=== PATIENT | male | born 1955 | race Caucasian/White ===

== ENCOUNTER 2017-01-26 23:29 | Emergency (ER) | payer BC, OTHER ==
[~2017-01-26] VITALS: Ht 167.6 cm; Wt 81.8 kg
[2017-01-27] MEDS ORDERED: KETOROLAC 60 MG/2 ML VIAL (J1885) IM ONE (01:00)
[2017-01-27] MEDS ORDERED: CYCL10TA PO (02:04)
[2017-01-27] MEDS ORDERED: NAPR500T PO (02:04)
[2017-01-27 02:10] VITALS: BP 130/84
--- NOTE | 2017-01-27 11:11 | REP ---
Clinical: Trauma. Technique: Frontal view of the chest with multiple views of the right hemithorax. Findings: Frontal view of the chest demonstrates no acute cardiopulmonary process. Multiple views of the right hemithorax demonstrates no obvious acute rib fracture or pathology. Impression: Normal right rib series Signed by Jimi Ríos MD 01/27/2017 07:24 A
--- NOTE | 2017-01-27 11:11 | REP ---
Clinical: Trauma. Technique: AP, lateral, bilateral oblique and coned-down views of the lumbosacral spine. Findings: Moderate multilevel degenerative changes through the visualized thoracic and lumbosacral spine include bridging osteophytes as well as mild endplate sclerosis and hypertrophic facet changes. Disc spaces appear relatively well maintained. There is no evidence for acute fracture / compression injury or subluxation. Impression: Moderate multilevel degenerative changes. No acute fracture / compression injury or subluxation. Signed by Jimi Ríos MD 01/27/2017 07:25 A
== END 2017-01-27 02:12 | disposition home or self-care (01) ==
LOC: M ED 23:29
DX: S20.419A Abrasion of unspecified back wall of thorax, initial encounter (principal); S20.229A Contusion of unspecified back wall of thorax, initial encounter; W10.9XXA Fall (on) (from) unspecified stairs and steps, initial encounter; Y92.89 Other specified places as the place of occurrence of the external cause; Y93.01 Activity, walking, marching and hiking; Y99.8 Other external cause status; M25.742 Osteophyte, left hand
CPT/HCPCS: 71101; 72110; 96372; 99282; J1885; J3360

== ENCOUNTER → 2017-06-09 | Outpatient (REF) | payer BC ==
[2017-06-09 13:10] LABS: C REACTIVE PROTEIN QUANTITATIV < 0.30 MG/DL (0.00-0.30)
[2017-06-09 13:10] LABS: RHEUMATOID FACTOR QUANT < 10.0 IU/ML (0-15.0)
[2017-06-09 13:22] LABS: ERYTHROCYTE SEDIMENTATION RATE 1 mm/hr (0-20)
[2017-06-15 14:15] LABS: HLA-B27 Negative (.)
== END ==
LOC: M LABDRAW1 11:43
DX: M51.36 Other intervertebral disc degeneration, lumbar region (principal)
CPT/HCPCS: 86140

== ENCOUNTER → 2017-06-22 | Outpatient (REF) | payer BC ==
[2017-06-22 14:53] LABS: HEMOGLOBIN 17.9 g/dl (14.0-18.0); MEAN CORPUSCULAR HEMOGLOBIN 31.2 pg (27.0-33.0); MEAN CORPUSCULAR HGB CONC 33.8 g/dl (32.0-36.5); MEAN CORPUSCULAR VOLUME 92.3 fl (80.0-96.0); PLATELET COUNT, AUTOMATED 189 10^3/uL (150-450); RED BLOOD COUNT 5.74 10^6/uL (4.30-6.10); RED CELL DISTRIBUTION WIDTH 12.1 % (11.5-14.5); WHITE BLOOD COUNT 6.9 10^3/uL (4.0-10.0)
[2017-06-22 15:12] LABS: SUSPECT SAMPLE POS FLAG
[2017-06-22 16:05] LABS: ALBUMIN 4.5 GM/DL (3.2-5.2); ALBUMIN/GLOBULIN RATIO 1.45 (1.00-1.93); ALKALINE PHOSPHATASE 78 U/L (45-117); ALT/SGPT 95 U/L (12-78); ANION GAP 5 MEQ/L (8-16); AST/SGOT 40 U/L (7-37); BILIRUBIN,TOTAL 0.9 MG/DL (0.2-1.0); BLOOD UREA NITROGEN 18 MG/DL (7-18); CALCIUM LEVEL 9.3 MG/DL (8.8-10.2); CARBON DIOXIDE LEVEL 30 MEQ/L (21-32); CHLORIDE LEVEL 105 MEQ/L (98-107); CHOLESTEROL LEVEL 195 MG/DL (<200); CHOLESTEROL RISK RATIO 5.416 (<5); CREATININE FOR GFR 1.03 MG/DL (0.70-1.30); FREE T4 0.86 NG/DL (0.76-1.46); GLOMERULAR FILTRATION RATE > 60.0 (>49); GLUCOSE, FASTING 110 MG/DL (70-100); HDL CHOLESTEROL 36 MG/DL (>40); LDL CHOLESTEROL 124.8 MG/DL (<100); NON-HDL-C 159 MG/DL; POTASSIUM SERUM 4.4 MEQ/L (3.5-5.1); SODIUM LEVEL 140 MEQ/L (136-145); TOTAL PROTEIN 7.6 GM/DL (6.4-8.2); TRIGLYCERIDES LEVEL 171 MG/DL (<150)
== END ==
LOC: M SFHCADAM 10:59
DX: I49.49 Other premature depolarization (principal); E66.9 Obesity, unspecified; R63.5 Abnormal weight gain; Z91.82 Personal history of military deployment; E78.00 Pure hypercholesterolemia, unspecified

== ENCOUNTER → 2017-06-29 | Outpatient (REF) | payer BC | LOC: M SFHCPLAZ 16:12 | DX: R73.01 Impaired fasting glucose (principal); R74.8 Abnormal levels of other serum enzymes ==

== ENCOUNTER → 2017-06-29 | Outpatient (CLI) | payer BC ==
[2017-06-29 20:29] LABS: FERRITIN 881 NG/ML (26-388)
[2017-06-29 20:30] LABS: ESTIMATED AVERAGE GLUCOSE 126 MG/DL (60-110)
[2017-06-30 10:43] LABS: HEPATITIS B SURFACE ANTIGEN NEGATIVE (NEGATIVE)
[2017-06-30 11:07] LABS: HEPATITIS C VIRUS ABY INDEX < 0.0 INDEX (<0.8)
[2017-06-30 11:08] LABS: HEPATITIS B CORE ANTIBODY IGM NEGATIVE (NEGATIVE)
[2017-06-30 11:09] LABS: HEPATITIS A ANTIBODY IGM NEGATIVE (NEGATIVE)
[2017-07-02 00:06] LABS: ANA (HEP2) Negative (.); ANTI-MITOCHONDRIAL ANTIBODY 2.1 Units (0.0-20.0)
== END ==
LOC: M ADAMS 16:16
DX: R73.01 Impaired fasting glucose (principal); R74.8 Abnormal levels of other serum enzymes

== ENCOUNTER → 2017-07-03 | Outpatient (CLI) | payer BC | LOC: M WHC 09:09 | DX: R74.8 Abnormal levels of other serum enzymes (principal) ==

== ENCOUNTER 2017-10-10 08:37 | Day surgery (SDC) | payer BC ==
[2017-10-10] MEDS ORDERED: LIDOCAINE 2% INJ 100 MG/5 ML SDV (FOR ANES.) As Ordered (09:15)
[2017-10-10] MEDS ORDERED: PROPOFOL 200 MG/20 ML VIAL As Ordered ×2 (09:15→09:16)
[2017-10-10] MEDS: LR 1,000 ML IV (09:32)
== END 2017-10-10 11:40 | disposition home or self-care (01) ==
LOC: M OPP 08:37
DX: Z12.11 Encounter for screening for malignant neoplasm of colon (principal); K57.30 Diverticulosis of large intestine without perforation or abscess without bleeding; E66.9 Obesity, unspecified
CPT/HCPCS: G0121

== ENCOUNTER → 2018-03-27 | Outpatient (REF) | payer BC ==
[2018-03-27 14:00] LABS: ALBUMIN 3.9 GM/DL (3.2-5.2); ALBUMIN/GLOBULIN RATIO 1.22 (1.00-1.93); ALKALINE PHOSPHATASE 71 U/L (45-117); ALT/SGPT 82 U/L (12-78); ANION GAP 7 MEQ/L (8-16); AST/SGOT 38 U/L (7-37); BLOOD UREA NITROGEN 19 MG/DL (7-18); CALCIUM LEVEL 9.3 MG/DL (8.8-10.2); CARBON DIOXIDE LEVEL 28 MEQ/L (21-32); CHLORIDE LEVEL 106 MEQ/L (98-107); CHOLESTEROL LEVEL 193 MG/DL (<200); CHOLESTEROL RISK RATIO 5.361 (<5); CREATININE FOR GFR 0.97 MG/DL (0.70-1.30); GLOMERULAR FILTRATION RATE > 60.0 (>49); GLUCOSE, FASTING 114 MG/DL (70-100); HDL CHOLESTEROL 36 MG/DL (>40); LDL CHOLESTEROL 124 MG/DL (<100); NON-HDL-C 157 MG/DL; SODIUM LEVEL 141 MEQ/L (136-145); TOTAL PROTEIN 7.1 GM/DL (6.4-8.2); TRIGLYCERIDES LEVEL 166 MG/DL (<150)
[2018-03-27 14:14] LABS: ESTIMATED AVERAGE GLUCOSE 123 MG/DL (60-110); HEMOGLOBIN A1c 5.9 %
== END ==
LOC: M SFHCADAM 08:19
DX: R74.8 Abnormal levels of other serum enzymes (principal); E78.00 Pure hypercholesterolemia, unspecified; R73.01 Impaired fasting glucose
CPT/HCPCS: 80053

== ENCOUNTER → 2019-07-30 | Outpatient (REF) | payer BC ==
[~2019-07-30] MED LIST: ALEV220C2 PO; CYCL10TA PO; NAPR-837 PO
[2019-07-30 13:48] LABS: ALT/SGPT 82 U/L (12-78); BLOOD UREA NITROGEN 22 MG/DL (7-18); CALCIUM LEVEL 9.1 MG/DL (8.8-10.2); CARBON DIOXIDE LEVEL 30 MEQ/L (21-32); CHLORIDE LEVEL 107 MEQ/L (98-107); CHOLESTEROL LEVEL 115 MG/DL (<200); CHOLESTEROL RISK RATIO 3.382 (<5); CREATININE FOR GFR 1.03 MG/DL (0.70-1.30); GLOMERULAR FILTRATION RATE > 60.0 (>49); GLUCOSE, FASTING 141 MG/DL (70-100); HDL CHOLESTEROL 34 MG/DL (>40); LDL CHOLESTEROL 54 MG/DL (<100); NON-HDL-C 81 MG/DL; POTASSIUM SERUM 4.8 MEQ/L (3.5-5.1); SODIUM LEVEL 141 MEQ/L (136-145); TOTAL PROTEIN 7.2 GM/DL (6.4-8.2); TRIGLYCERIDES LEVEL 135 MG/DL (<150)
[2019-07-30 15:13] LABS: HEMOGLOBIN A1c 7.1 %
== END ==
LOC: M SFHCADAM 07:48
PROVIDERS: ATTEND Physician Assistant
DX: Z12.5 Encounter for screening for malignant neoplasm of prostate (principal); R73.01 Impaired fasting glucose; E78.5 Hyperlipidemia, unspecified; K76.0 Fatty (change of) liver, not elsewhere classified
CPT/HCPCS: 80053; 80061; 83036; G0103

== ENCOUNTER → 2019-08-12 | Outpatient (REF) | payer BC ==
[2019-08-12 18:13] LABS: APPEARANCE, URINE CLEAR (CLEAR); BACTERIA, URINE AUTO NEGATIVE (NEGATIVE); BILIRUBIN, URINE AUTO NEGATIVE (NEGATIVE); BLOOD, URINE BLOOD NEGATIVE (NEGATIVE); COLOR, URINE YELLOW (YELLOW); GLUCOSE, URINE (UA) AUTO 1+ mg/dL (NEGATIVE); KETONE, URINE AUTO NEGATIVE (NEGATIVE); LEUKOCYTE ESTERASE, URINE AUTO NEGATIVE (NEGATIVE); NITRITE, URINE AUTO NEGATIVE (NEGATIVE); PROTEIN, URINE AUTO NEGATIVE (NEGATIVE); RBC, URINE AUTO 0 /HPF (0-3); SPECIFIC GRAVITY URINE AUTO 1.024 (1.002-1.035); SQUAMOUS EPITHELIAL CELL UR AU 0 /HPF (0-6); UROBILINOGEN, URINE AUTO 0.2 mg/dL (0.0-2.0); WBC, URINE AUTO 1 /HPF (0-3)
== END ==
LOC: M SMT 17:16
PROVIDERS: ATTEND Nurse Practitioner Women's Health
DX: R97.20 Elevated prostate specific antigen [PSA] (principal)

== ENCOUNTER → 2019-08-20 | Outpatient (CLI) | payer BC ==
--- NOTE | 2019-08-20 11:43 | REPPI ---
TRANSRECTAL PROSTATE ULTRASOUND WITH ULTRASOUND GUIDANCE FOR PROSTATE BIOPSY: Transrectal prostate ultrasound are performed. The prostate measures 5.0 x 4.1 x 6.0 cm for a total volume of 65.1 mL. Echotexture is heterogeneous with tiny cystic areas and calcifications. Hypoechoic nodular area in the right apex laterally measures 6 mm in diameter. Seminal vesicles are grossly unremarkable. Ultrasound guidance was provided for Dr. Morris who performed ultrasound guided biopsy of the prostate. Electronically Signed by Alan Flores MD 08/20/2019 11:47 A
== END ==
LOC: M SMT PRO 09:04
PROVIDERS: ATTEND Urology
DX: R97.20 Elevated prostate specific antigen [PSA] (principal)
CPT/HCPCS: 76872; 76942; G0416

== ENCOUNTER → 2019-10-29 | Outpatient (REF) | payer BC ==
[~2019-10-29] MED LIST changes: +CYCL-707 PO; -CYCL10TA PO
[2019-10-29 19:36] LABS: ALBUMIN 4.3 GM/DL (3.2-5.2); ALT/SGPT 82 U/L (12-78); BILIRUBIN,TOTAL 0.9 MG/DL (0.2-1.0); BLOOD UREA NITROGEN 17 MG/DL (7-18); CALCIUM LEVEL 9.6 MG/DL (8.8-10.2); CARBON DIOXIDE LEVEL 29 MEQ/L (21-32); CHLORIDE LEVEL 105 MEQ/L (98-107); CREATININE FOR GFR 0.94 MG/DL (0.70-1.30); GLOMERULAR FILTRATION RATE > 60.0 (>49); GLUCOSE, FASTING 81 MG/DL (70-100); POTASSIUM SERUM 4.1 MEQ/L (3.5-5.1); SODIUM LEVEL 139 MEQ/L (136-145); TOTAL PROTEIN 7.5 GM/DL (6.4-8.2)
== END ==
LOC: M SFHCADAM 15:55
PROVIDERS: ATTEND Physician Assistant
DX: E11.9 Type 2 diabetes mellitus without complications (principal)

== ENCOUNTER → 2020-04-15 | Outpatient (REF) | payer BC ==
[2020-04-15 13:35] LABS: ALT/SGPT 94 U/L (12-78); BILIRUBIN,TOTAL 0.7 MG/DL (0.2-1.0); BLOOD UREA NITROGEN 18 MG/DL (7-18); CALCIUM LEVEL 9.5 MG/DL (8.8-10.2); CARBON DIOXIDE LEVEL 30 MEQ/L (21-32); CHLORIDE LEVEL 105 MEQ/L (98-107); CHOLESTEROL LEVEL 112 MG/DL (<200); CREATININE FOR GFR 1.02 MG/DL (0.70-1.30); GLOMERULAR FILTRATION RATE > 60.0 (>49); GLUCOSE, FASTING 136 MG/DL (70-100); HDL CHOLESTEROL 40 MG/DL (>40); LDL CHOLESTEROL 48 MG/DL (<100); NON-HDL-C 72 MG/DL; POTASSIUM SERUM 4.7 MEQ/L (3.5-5.1); SODIUM LEVEL 141 MEQ/L (136-145); TOTAL PROTEIN 7.2 GM/DL (6.4-8.2); TRIGLYCERIDES LEVEL 120 MG/DL (<150)
[2020-04-15 13:52] LABS: HEMOGLOBIN A1c 6.6 %
[2020-04-18 20:07] LABS: PSA % FREE 18.3 % (.); PSA FREE 1.08 ng/mL; PSA TOTAL 5.9 ng/mL (0.0-4.0)
== END ==
LOC: M SFHCADAM 08:01
PROVIDERS: ATTEND Physician Assistant
DX: E78.00 Pure hypercholesterolemia, unspecified (principal); E11.9 Type 2 diabetes mellitus without complications; R97.20 Elevated prostate specific antigen [PSA]

== ENCOUNTER 2020-06-18 15:05 | Outpatient (CLI) | payer BC ==
[~2020-06-18] VITALS: Ht 167.6 cm; Wt 83.4 kg
[~2020-06-18 15:05] MED LIST changes: +ALBUTEROL 90 MCG/ACT 8GM HFA INHALER INH PRN; +ALBUTEROL SULFATE 2.5 MG/0.5 ML INH NEB SOLN INH PRN; +BAMLANIVIMAB 700 MG in NS 250 ML IV ONE; +EPINEPHrine INJ 1 MG/ML 1ML AMP IM PRN; +NS 1,000 ML IV SCH; +diphenhydrAMINE 50MG/ML VIAL (J1200) IV PRN; +methylPREDNISolone 125MG 2ML VIAL IV PRN
[2020-06-18 15:18] VITALS: BP 144/95
[2020-06-18] MEDS ORDERED: diphenhydrAMINE 50MG CAP PO ONE (16:00)
[2020-06-18] MEDS ORDERED: ACETAMINOPHEN TAB 650MG DOSE (2X325MG) PO ONE (16:00)
[2020-06-18] MEDS ORDERED: methylPREDNISolone 40MG 1ML VIAL IV ONE (16:00)
[2020-06-18] MEDS ORDERED: BAMLANIVIMAB 700 MG in NS 250 ML IV ONE (16:30)
[2020-06-18 16:40] VITALS: BP 134/79
[2020-06-18 16:50] VITALS: BP 128/84
[2020-06-18 17:19] VITALS: BP 131/75
[2020-06-18 17:53] VITALS: BP 139/81
[2020-06-18 18:56] VITALS: BP 121/73
== END 2020-06-18 18:59 | disposition home or self-care (01) ==
LOC: M OPCLI4 15:05 → M 4MAIN 15:13 → M OPCLI4 18:59
PROVIDERS: ATTEND Family Medicine
DX: U07.1 COVID-19 (principal)
CPT/HCPCS: 96375; J2920; M0239

== ENCOUNTER → 2020-08-14 | Outpatient (REF) | payer BC ==
[~2020-08-14] MED LIST changes: -ALBUTEROL 90 MCG/ACT 8GM HFA INHALER INH PRN; -ALBUTEROL SULFATE 2.5 MG/0.5 ML INH NEB SOLN INH PRN; -BAMLANIVIMAB 700 MG in NS 250 ML IV ONE; -EPINEPHrine INJ 1 MG/ML 1ML AMP IM PRN; -NS 1,000 ML IV SCH; -diphenhydrAMINE 50MG/ML VIAL (J1200) IV PRN; -methylPREDNISolone 125MG 2ML VIAL IV PRN
[2020-08-17 23:09] LABS: PSA % FREE 21.7 % (.); PSA FREE 1.15 ng/mL; PSA TOTAL 5.3 ng/mL (0.0-4.0)
== END ==
LOC: M SMT 16:16 → M LABDRWAD 16:16
PROVIDERS: ATTEND Urology
DX: R97.20 Elevated prostate specific antigen [PSA] (principal)

== ENCOUNTER → 2020-09-28 | Outpatient (CLI) | payer BC ==
[~2020-09-28] MED LIST changes: +GASTROGRAFIN SOLUTION 30ML (Q9963) As Ordered ONE; +ISOVUE-370 76% 100ML VIAL As Ordered ONE
--- NOTE | 2020-09-29 06:50 | REP ---
INDICATION: RLQ ABD PAIN. COMPARISON: 09/30/2007 TECHNIQUE: Axial contrast-enhanced images from the lung bases to the pubic symphysis using oral and 100 cc Isovue 370 intravenous contrast material. Coronal and sagittal reformations obtained. This CT examination was performed using the following dose reduction techniques: Automated exposure control, adjustment of mA and/or kv according to the patient's size, and the use of iterative reconstruction technique. FINDINGS: Liver demonstrates diffuse fatty infiltration without focal hepatic lesion. Spleen, pancreas, gallbladder, and bilateral adrenal glands are normal. Kidneys demonstrate symmetric enhancement along with few suspected nonobstructing nephroliths (right greater than left) measuring up to roughly 7 mm in the right kidney and 2 mm in left kidney. The enteric system including stomach, small, and large bowel appears normal. No evidence for obstruction or acute inflammatory process. Normal terminal ileum and appendix are identified in the right lower quadrant. Sigmoid diverticulosis noted without acute diverticulitis. Pelvis demonstrates significantly enlarged heterogeneous prostate gland with mass effect on the base of the bladder. Few small pelvic sidewall lymph nodes measuring up to approximately 8 mm are nonspecific.. Bladder itself is grossly unremarkable. No ascites. No free air. No intraperitoneal or retroperitoneal adenopathy. Abdominal aorta and vasculature appear normal. Musculoskeletal structures are intact and without acute osseous abnormality. IMPRESSION: Nephrolithiasis. Hepatosteatosis. Sigmoid diverticulosis. Heterogeneous enlarged prostate gland. <Electronically signed by Jimi Ríos > 09/29/20 [id number]
== END ==
LOC: M RAD 13:32
PROVIDERS: ATTEND Family Medicine
DX: R10.31 Right lower quadrant pain (principal); K76.0 Fatty (change of) liver, not elsewhere classified; N40.0 Benign prostatic hyperplasia without lower urinary tract symptoms; N20.0 Calculus of kidney
CPT/HCPCS: 74177; Q9963; Q9967

== ENCOUNTER → 2020-11-10 | Outpatient (REF) | payer BC ==
[~2020-11-10] MED LIST changes: -GASTROGRAFIN SOLUTION 30ML (Q9963) As Ordered ONE; -ISOVUE-370 76% 100ML VIAL As Ordered ONE
[2020-11-10 19:51] LABS: HEMOGLOBIN A1c 7.7 %
[2020-11-10 20:10] LABS: ALBUMIN 4.1 GM/DL (3.2-5.2); ALT/SGPT 115 U/L (12-78); BILIRUBIN,TOTAL 0.7 MG/DL (0.2-1.0); BLOOD UREA NITROGEN 21 MG/DL (7-18); CALCIUM LEVEL 9.4 MG/DL (8.8-10.2); CARBON DIOXIDE LEVEL 31 MEQ/L (21-32); CHLORIDE LEVEL 105 MEQ/L (98-107); CREATININE FOR GFR 1.02 MG/DL (0.70-1.30); GLOMERULAR FILTRATION RATE > 60.0 (>49); GLUCOSE, FASTING 201 MG/DL (70-100); POTASSIUM SERUM 4.9 MEQ/L (3.5-5.1); SODIUM LEVEL 141 MEQ/L (136-145); TOTAL PROTEIN 7.3 GM/DL (6.4-8.2)
== END ==
LOC: M SFHCADAM 13:34
PROVIDERS: ATTEND Physician Assistant
DX: E78.00 Pure hypercholesterolemia, unspecified (principal); E11.9 Type 2 diabetes mellitus without complications; K76.0 Fatty (change of) liver, not elsewhere classified

== ENCOUNTER 2020-12-02 23:21 | Inpatient (IN) | payer BC ==
[~2020-12-02] VITALS: Ht 167.6 cm; Wt 82.7 kg
[2020-12-02] MEDS ORDERED: METF500T13 PO (23:29)
[2020-12-02] MEDS ORDERED: ROSU10TA6 PO (23:29)
[2020-12-03] MEDS ORDERED: ONDANSETRON 4MG/2ML VIAL IV ONE (00:45)
[2020-12-03] MEDS ORDERED: NS 1,000 ML IV ONE ×2 (00:45→03:15)
[2020-12-03] MEDS ORDERED: ISOVUE-370 76% 100ML VIAL As Ordered ONE (00:51)
[2020-12-03] MEDS: MORPHINE 2 MG/ML 1ML VIAL (J2270) IV PRN ×2 (01:15→04:56)
[2020-12-03 01:24] LABS: BASO # 0.1 10^3/uL (0.0-0.2); BASO % 0.3 % (0.0-1.0); EOS # 0.1 10^3/uL (0.0-0.5); EOS % 0.4 % (0.0-3.0); HEMATOCRIT 48.5 % (42.0-52.0); HEMOGLOBIN 16.6 g/dl (13.5-17.5); LYMPH # 2.2 10^3/uL (1.5-5.0); LYMPH % 11.7 % (24.0-44.0); MEAN CORPUSCULAR HEMOGLOBIN 30.9 pg (27.0-33.0); MEAN CORPUSCULAR HGB CONC 34.2 g/dl (32.0-36.5); MEAN CORPUSCULAR VOLUME 90.3 fl (80.0-96.0); MONO # 1.9 10^3/uL (0.0-0.8); MONO % 10.4 % (2.0-8.0); NEUTROPHILS # 14.2 10^3/uL (1.5-8.5); NEUTROPHILS % 76.7 % (36.0-66.0); PLATELET COUNT, AUTOMATED 112 10^3/uL (150-450); RED BLOOD COUNT 5.37 10^6/uL (4.30-6.10)
[2020-12-03 01:34] LABS: WHITE BLOOD COUNT 18.6 10^3/uL (4.0-10.0)
[2020-12-03 02:01] LABS: ALBUMIN 3.5 GM/DL (3.2-5.2); ALT/SGPT 69 U/L (12-78); BILIRUBIN,DIRECT 0.1 MG/DL (0.0-0.2); BLOOD UREA NITROGEN 19 MG/DL (7-18); CALCIUM LEVEL 8.5 MG/DL (8.8-10.2); CARBON DIOXIDE LEVEL 25 MEQ/L (21-32); CHLORIDE LEVEL 108 MEQ/L (98-107); CK-MB VALUE MASS < 1.0 NG/ML (<3.6); CPK CREATINE PHOSPHOKINASE 149 U/L (39-308); GLOMERULAR FILTRATION RATE > 60.0 (>49); GLUCOSE, FASTING 171 MG/DL (70-100); LIPASE 173 U/L (73-393); MB/CK RELATIVE INDEX 0.67 (< OR =4); POTASSIUM SERUM 4.8 MEQ/L (3.5-5.1); SODIUM LEVEL 138 MEQ/L (136-145); TOTAL PROTEIN 6.8 GM/DL (6.4-8.2); TROPONIN I < 0.02 NG/ML (< 0.10)
[2020-12-03] MEDS ORDERED: PIPERACILLIN/TAZOBACTAM SOD 3.375 GM in D5W MINI-BAG PLUS 50 ML IV ONE (03:15)
[2020-12-03 03:56] LABS: RSV AMPLIFICATION NEGATIVE (NEGATIVE)
--- NOTE | 2020-12-03 05:04 | REPVR ---
PROCEDURE INFORMATION: Exam: CT Abdomen And Pelvis With Contrast Exam date and time: 12/03/2020 12:43 AM Age: 65 years old Clinical indication: Abdominal pain; Localized; Right lower quadrant (rlq); Patient HX: HX diverticulitis; Additional info: Rlq pain TECHNIQUE: Imaging protocol: Computed tomography of the abdomen and pelvis with contrast. Radiation optimization: All CT scans at this facility use at least one of these dose optimization techniques: automated exposure control; mA and/or kV adjustment per patient size (includes targeted exams where dose is matched to clinical indication); or iterative reconstruction. Contrast material: ISO; Contrast volume: 100 ml; Contrast route: INTRAVENOUS (IV); COMPARISON: CT ABD/PEL W/IV ORAL CONTRAS 09/28/2020 3:28 PM FINDINGS: Liver: The liver is low attenuation indicating hepatic steatosis. Gallbladder and bile ducts: Normal. No calcified stones. No ductal dilation. Pancreas: Normal. No ductal dilation. Spleen: Normal. No splenomegaly. Adrenal glands: Normal. No mass. Kidneys and ureters: Nonobstructing calyceal stones in the right kidney. No hydronephrosis. Stomach and bowel: There is redundant sigmoid colon extending into the right lower quadrant. Wall thickening and diverticular inflammation in the sigmoid colon in the right lower quadrant. Small bowel is unremarkable. Appendix: No evidence of appendicitis. Intraperitoneal space: Mesenteric edema in the right lower quadrant. No abscess or pneumoperitoneum. Vasculature: Unremarkable. No abdominal aortic aneurysm. Lymph nodes: Unremarkable. No enlarged lymph nodes. Urinary bladder: Unremarkable as visualized. Reproductive: Prostate gland is mildly enlarged no bowel obstruction. Bones/joints: Unremarkable. No acute fracture. Soft tissues: Unremarkable. IMPRESSION: 1. Sigmoid diverticulitis with redundant sigmoid colon extending into the right lower quadrant. No bowel perforation or obstruction. 2. Hepatic steatosis. 3. Nonobstructing calyceal stones in the right kidney. Electronically signed by: Nile Lester On 12/03/2020 05:03:26 AM
--- NOTE | 2020-12-03 05:34 | ECGEPIP ---
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
[2020-12-03] MEDS ORDERED: ONDANSETRON 4MG/2ML VIAL IV PRN (05:40)
[2020-12-03] MEDS ORDERED: MORPHINE 2 MG/ML 1ML VIAL (J2270) IV PRN (05:40)
[2020-12-03] MEDS ORDERED: GLUCAGON INJ 1MG VIAL SC PRN (05:40)
[2020-12-03] MEDS ORDERED: DEXTROSE 50% 50 ML SYRINGE IV PRN (05:40)
[2020-12-03] MEDS ORDERED: GLUCOSE 4GM CHEW TABLET PO PRN (05:40)
--- NOTE | 2020-12-03 05:53 | HPEPDOC ---
[facility] Medical History & Physical Date of Admission Dec 03, 2020 Date of Service: Dec 03, 2020 Primary Care Physician: KANCHAN LAU PA-C Attending Physician: GRADY VALENZUELA MD History and Physical CHIEF COMPLAINT: Abdominal pain HISTORY OF PRESENT ILLNESS: Mr. Salguero is a 65-year-old male who presented to the ER with complaints of right lower quadrant pain since yesterday morning. He has a history of divertic ulitis and has had several acute episodes. The most recent one was 4 months ago and was treated with by mouth antibiotics. Yesterday morning he started experiencing some pain in the right lower quadrant which he described as crampy. The pain continued to worsen throughout the day and he complained of subjective fevers. He also had some nausea and vomiting. He experienced diarrhea the night before last and has not had a bowel movement since. The pain got so bad that he finally presented to the ER last evening. He was given a dose of Zosyn while waiting for the results of the CT scan with the suspected appendicitis. However, CT scan showed a redundant sigmoid colon with sigmoid diverticulitis extending into the right lower quadrant. CT was also remarkable for hepatic steatosis and nonobstructing calyceal stones in the right kidney. Patient was noted to have a white count of 18.6. The rest of his labs were relatively unremarkable. He was afebrile with pulse of 80 and blood pressure of 129/63. PAST MEDICAL HISTORY: 1. Diverticulitis. 2. Diabetes type 2, [id number]. 3. Hyperlipidemia. 4. Osteoarthritis. 5. Bone spurs in his back. 6. Benign prostatic hypertrophy PAST SURGICAL HISTORY: No previous surgical history SOCIAL HISTORY: Tobacco use: Negative ETOH: Occasional Illicit drug use: Denies Patient lives with: His and son FAMILY HISTORY: Patient's mother of an unknown cancer at a young age. His father in a traumatic construction accident. REVIEW OF SYSTEMS: Complete 10 point review systems is negative except as noted above PHYSICAL EXAMINATION: Patient is seen in the ER, lying on the stretcher. He is alert and oriented x 3. HEENT is WNL. Neck is supple. Lungs are clear to auscultation. Heart regular rate and rhythm without murmur. Abdomen is soft, tender to percussion and palpation in the right lower quadrant with bowel sounds positive. Extremities with good ROM and strength equal bilaterally. No lower extremity edema. Pedal pulses are positive. Skin is warm and dry with no obvious rash or lesion. Neuro: grossly intact. Psych: He is pleasant and cooperative ASSESSMENT AND PLAN: 1. Acute diverticulitis. We'll continue the patient on Cipro and Flagyl. He will remain nothing by mouth and we will continue him on gentle IV fluids. Monitor for improvement in pain and normalization of white blood cell count at which time his diet can be advanced. 2. Diabetes type 2, tzy-qzgyipb-wozxfbzit. Will hold her metformin while hospitalized. Monitor blood glucose every 6 hours and add sliding scale for use as needed. 3. Leukocytosis. Plan as outlined above. Recheck labs in the morning. 4. DVT prophylaxis. Will add Lovenox. CODE STATUS: CODE STATUS was discussed with the patient desires to be considered full code. He states his would act as a surrogate if you were unable to make his own decisions. Patient is considered high risk of further deterioration including possible development of sepsis or septic shock. He is admitted as inpatient and expected to remain at least 2-3 midnights. Vital Signs Vital Signs Date Time Temp Pulse Resp B/P (MAP) Pulse Ox O2 Delivery O2 Flow Rate FiO2 12/03/20 05:06 16 12/03/20 04:56 115/56 12/03/20 04:33 77 95 12/03/20 00:30 98.7 Room Air Laboratory Data Labs 24H Laboratory Tests 2 12/03/20 00:56: Immature Granulocyte % (Auto) 0.5, Neutrophils (%) (Auto) 76.7H, Lymphocytes (%) (Auto) 11.7L, Monocytes (%) (Auto) 10.4H, Eosinophils (%) (Auto) 0.4, Basophils (%) (Auto) 0.3, Neutrophils # (Auto) 14.2H, Lymphocytes # (Auto) 2.2, Monocytes # (Auto) 1.9H, Eosinophils # (Auto) 0.1, Basophils # (Auto) 0.1, Nucleated Red Blood Cells % (auto) 0.0, Urine Color YELLOW, Urine Appearance CLEAR, Urine pH 5.0, Urine Specific [place] 1.017, Urine Protein NEGATIVE, Urine Glucose (UA) NEGATIVE, Urine Ketones TRACEH, Urine Blood 1+H, Urine Nitrite NEGATIVE, Urine Bilirubin NEGATIVE, Urine Urobilinogen 0.2, Urine Leukocyte Esterase NEGATIVE, Urine WBC (Auto) 1, Urine RBC (Auto) 5H, Urine Hyaline Casts (Auto) 0, Urine Bacteria (Auto) NEGATIVE, Urine Squamous Epithelial Cells 0, Urine Mucus (Auto) SMALL, Urine Sperm (Auto) , Anion Gap 5L, Glomerular Filtration Rate > 60.0, Lactic Acid Level 1.1, Calcium Level 8.5L, Total Bilirubin 1.0, Direct Bilirubin 0.1, Aspartate Amino Transf (AST/SGOT) 43H, Alanine Aminotransferase (ALT/SGPT) 69, Alkaline Phosphatase 59, Total Creatine Kinase 149, Creatine Kinase MB < 1.0, Creatine Kinase MB Relative Index 0.67, Troponin I < 0.02, Total Protein 6.8, Albumin 3.5, Albumin/Globulin Ratio 1.1, Lipase 173 12/03/20 03:12: Coronavirus (COVID-19)(PCR) NEGATIVE, Influenza Type A (RT-PCR) NEGATIVE, Influenza Type B (RT-PCR) NEGATIVE, Respiratory Syncytial Virus (PCR) NEGATIVE CBC/BMP Laboratory Tests 12/03/20 00:56 Home Medications Scheduled Metformin HCl (Metformin HCl) 500 Mg Tablet, 500 MG PO BID Rosuvastatin Calcium (Rosuvastatin Calcium) 10 Mg Tablet, 10 MG PO QPM Scheduled PRN (Aleve) 220 Mg Cap, 220 MG PO for BACK PAIN Allergies Coded Allergies: No Known Drug Allergies (Verified Allergy, Unknown, 06/18/20) A-FIB/CHADSVASC A-FIB History Current/History of A-Fib/PAF?: No TALYA EPSTEIN Dec 03, 2020 05:53
[2020-12-03] MEDS: HumaLOG INSULIN (NovoLOG) PER UNIT SC SCH ×3 (06:00→18:43)
[2020-12-03] MEDS: NS 1,000 ML IV SCH ×2 (06:02→18:42)
[2020-12-03] MEDS ORDERED: PREVAGEN PO (06:25)
[2020-12-03] MEDS ORDERED: ALEV220T22 PO (06:25)
[2020-12-03] MEDS ORDERED: ROSU10TA6 PO (06:25)
[2020-12-03] MEDS ORDERED: VITMTA PO (06:25)
[2020-12-03] MEDS ORDERED: METF-839 PO (06:25)
[2020-12-03] MEDS: metroNIDAZOLE 500 MG in IV 1 EA IV SCH ×2 (07:54→16:27)
[2020-12-03 08:05] VITALS: BP 141/68
[2020-12-03] MEDS ORDERED: CIPROFLOXACIN 400 MG in IV 1 EA IV SCH (09:00)
[2020-12-03] MEDS: cefTRIAXone SOD 1 GM in D5W MINI-BAG PLUS 50 ML IV SCH (09:27)
[2020-12-03] MEDS: ENOXAPARIN 40MG/0.4ML SYRINGE (J1650 PER 10MG) SC SCH (09:28)
[2020-12-03 14:00] VITALS: BP 112/67
[2020-12-03 19:42] VITALS: BP 114/65
[2020-12-04] MEDS: metroNIDAZOLE 500 MG in IV 1 EA IV SCH ×2 (00:31→08:22)
[2020-12-04 05:44] VITALS: BP 116/66
[2020-12-04] MEDS: HumaLOG INSULIN (NovoLOG) PER UNIT SC SCH ×3 (06:00→12:19)
[2020-12-04 06:33] LABS: HEMATOCRIT 43.7 % (42.0-52.0); HEMOGLOBIN 14.5 g/dl (13.5-17.5); MEAN CORPUSCULAR HEMOGLOBIN 30.9 pg (27.0-33.0); MEAN CORPUSCULAR HGB CONC 33.2 g/dl (32.0-36.5); MEAN CORPUSCULAR VOLUME 93.2 fl (80.0-96.0); PLATELET COUNT, AUTOMATED 137 10^3/uL (150-450); RED BLOOD COUNT 4.69 10^6/uL (4.30-6.10); WHITE BLOOD COUNT 9.2 10^3/uL (4.0-10.0)
[2020-12-04 06:59] LABS: BLOOD UREA NITROGEN 13 MG/DL (7-18); CALCIUM LEVEL 8.1 MG/DL (8.8-10.2); CARBON DIOXIDE LEVEL 25 MEQ/L (21-32); CHLORIDE LEVEL 111 MEQ/L (98-107); CREATININE FOR GFR 0.96 MG/DL (0.70-1.30); GLOMERULAR FILTRATION RATE > 60.0 (>49); GLUCOSE, FASTING 89 MG/DL (70-100); POTASSIUM SERUM 4.1 MEQ/L (3.5-5.1); SODIUM LEVEL 144 MEQ/L (136-145)
[2020-12-04] MEDS: ENOXAPARIN 40MG/0.4ML SYRINGE (J1650 PER 10MG) SC SCH (08:23)
[2020-12-04] MEDS: cefTRIAXone SOD 1 GM in D5W MINI-BAG PLUS 50 ML IV SCH (10:11)
[2020-12-04] MEDS ORDERED: CEFD1CAP8 PO (10:21)
[2020-12-04] MEDS ORDERED: TRAM50TA2 PO (10:21)
[2020-12-04] MEDS ORDERED: FLAG500T PO (10:21)
--- NOTE | 2020-12-04 10:33 | DS.PDOC ---
Discharge Summary General Date of Admission 12/03/20 Date of Discharge 12/04/20 Discharge Summary PROCEDURES PERFORMED DURING STAY: [None]. DISCHARGE DIAGNOSES: Acute Diverticulitis Fatty liver Renal stone Secondary diagnosis Diabetes type 2, ecy-rtctkfs-xhxiqlaae. Hyperlipidemia. Osteoarthritis. Bone spurs in his back. Benign prostatic hypertrophy COMPLICATIONS/CHIEF COMPLAINT: Severe Abdomen Pain. HOSPITAL COURSE: Mr. Salguero is a 65-year-old male who presented to the ER with complaints of right lower quadrant pain since yesterday morning. He has a history of diverticulitis and has had several acute episodes. The most recent one was 4 months ago and was treated with by mouth antibiotics. In the morning prior to admission he started experiencing some pain in the right lower quadrant which he described as crampy. The pain continued to worsen throughout the day and he complained of subjective fevers. He also had some nausea and vomiting. He experienced diarrhea the night before admission and has not had a bowel movement since. The pain got so bad that he finally presented to the ER. He was given a dose of Zosyn while waiting for the results of the CT scan with the suspicion for acute appendicitis. However, CT scan showed a redundant sigmoid colon with sigmoid diverticulitis extending into the right lower quadrant. CT was also remarkable for hepatic steatosis and nonobstructing calyceal stones in the right kidney. Patient was noted to have a white count of 18.6. The rest of his labs were relatively unremarkable. He was afebrile with pulse of 80 and blood pressure of 129/63. He was admitted for acute diverticulitis. In the hospital he was treated with ceftriaxone and metronidazole. At present his pain is controlled. He has tolerated liquid diet without any worsening of pain. He is being discharged home with 10 days of cefdinir and metronidazole. DISCHARGE MEDICATIONS: Please see below. ALLERGIES: Please see below. PHYSICAL EXAMINATION ON DISCHARGE: VITAL SIGNS: Please see below. GENERAL: Awake alert oriented x3 seen walking in the corridor is in no acute distress HEENT: Normocephalic atraumatic moist mucous membranes anicteric eyes NECK: Supple no JVD CARDIOVASCULAR EXAMINATION: S1-S2 normal, regular heart sounds, no rub murmur or gallop RESPIRATORY EXAMINATION: Bilateral clear to auscultation vesicular breath sounds ABDOMINAL EXAMINATION: Soft mildly tender on deep palpation in the right iliac fossa, normal bowel sounds, no guarding, no rigidity or rebound EXTREMITIES: No edema LABORATORY DATA: Please see below. ACTIVITY: [As tolerated]. DIET: Liquid diet for 2 days, then low residue diet for a week, then regular diet DISCHARGE PLAN: Home DISCHARGE INSTRUCTIONS: Follow-up with PMD in 1 week May need referral to surgery for this recurrent bouts of diverticulitis DISCHARGE CONDITION: [Stable]. TIME SPENT ON DISCHARGE: 35 minutes. Vital Signs/I&Os Vital Signs Date Time Temp Pulse Resp B/P (MAP) Pulse Ox O2 Delivery O2 Flow Rate FiO2 12/04/20 05:44 97.5 71 20 116/66 (83) 97 Room Air I&O- Last 24 Hours up to 6 AM 12/04/20 06:00 Intake Total 3200 ml Output Total 850 ml Balance 2350 ml Laboratory Data Labs 24H Laboratory Tests 2 12/03/20 13:49: Bedside Glucose (Misc Panel) 145H 12/03/20 16:36: Bedside Glucose (Misc Panel) 113 12/03/20 19:45: Bedside Glucose (Misc Panel) 107 12/04/20 00:18: Bedside Glucose (Misc Panel) 103 12/04/20 05:41: Nucleated Red Blood Cells % (auto) 0.0, Anion Gap 8, Glomerular Filtration Rate > 60.0, Calcium Level 8.1L, Magnesium Level 2.0 12/04/20 05:47: Bedside Glucose (Misc Panel) 98 CBC/BMP Laboratory Tests 12/04/20 05:41 FSBS Laboratory Tests Test 12/03/20 13:49 12/03/20 16:36 12/03/20 19:45 12/04/20 00:18 Range/Units Bedside Glucose (Misc Panel) 145 113 107 103 80-115 MG/DL Test 12/04/20 05:47 Range/Units Bedside Glucose (Misc Panel) 98 80-115 MG/DL Discharge Medications Scheduled Cefdinir (Cefdinir) 300 Mg Capsule, 300 MG PO BID Metformin HCl (Metformin HCl) 500 Mg Tablet, 500 MG PO BID, (Reported) Metronidazole (Flagyl) 500 Mg Tablet, 500 MG PO Q8H FOR 10 DAYS Multivitamins (Thera M Plus Tablet) 1 Each Tablet, 1 TAB PO QPM, (Reported) TAKES AT DINNERTIME Rosuvastatin Calcium (Rosuvastatin Calcium) 10 Mg Tablet, 10 MG PO QHS, (Reported) [Prevagen] , 1 CAP PO QPM, (Reported) TAKES AT DINNERTIME Scheduled PRN Naproxen Sodium (Aleve) 220 Mg Tablet, 440 MG PO BID PRN for PAIN LEVEL 1-5, (Reported) Tramadol HCl (Tramadol HCl) 50 Mg Tablet, 1 TAB PO TIDP PRN for PAIN LEVEL 6-10 Allergies Coded Allergies: No Known Drug Allergies (Verified Allergy, Unknown, 06/18/20) JOHNNIE HAMPTON MD Dec 04, 2020 10:24
== END 2020-12-04 13:28 | disposition home or self-care (01) | DRG 244 ==
LOC: M ED 23:21 → M ED INP 23:22 → ENRESERV 12-03 06:45 → M MS5PR 12-03 08:05
PROVIDERS: ADMIT Internal Medicine; ATTEND Internal Medicine Nephrology
DX: K57.92 Diverticulitis of intestine, part unspecified, without perforation or abscess without bleeding (principal); K76.0 Fatty (change of) liver, not elsewhere classified; E11.9 Type 2 diabetes mellitus without complications; M19.90 Unspecified osteoarthritis, unspecified site; E78.5 Hyperlipidemia, unspecified; N20.0 Calculus of kidney; N40.0 Benign prostatic hyperplasia without lower urinary tract symptoms; Z79.899 Other long term (current) drug therapy

== ENCOUNTER 2021-01-03 23:06 | Emergency (ER) | payer BC ==
[~2021-01-03] VITALS: Ht 167.6 cm; Wt 82.5 kg
[~2021-01-03 23:06] MED LIST changes: +ALEV220T22 PO; +CEFD1CAP8 PO; +FLAG500T PO; +METF-839 PO; +METF500T13 PO; +PREVAGEN PO; +ROSU10TA6 PO; +TRAM50TA2 PO; +VITMTA PO
[2021-01-04 03:18] VITALS: BP 176/92
--- NOTE | 2021-01-04 05:57 | ECGEPIP ---
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
[2021-01-04 06:03] LABS: BASO # 0.1 10^3/uL (0.0-0.2); BASO % 0.5 % (0.0-1.0); EOS % 0.1 % (0.0-3.0); HEMATOCRIT 49.2 % (42.0-52.0); HEMOGLOBIN 16.3 g/dl (13.5-17.5); LYMPH # 1.5 10^3/uL (1.5-5.0); LYMPH % 12.2 % (24.0-44.0); MEAN CORPUSCULAR HEMOGLOBIN 30.5 pg (27.0-33.0); MEAN CORPUSCULAR HGB CONC 33.1 g/dl (32.0-36.5); MEAN CORPUSCULAR VOLUME 92.1 fl (80.0-96.0); MONO # 0.9 10^3/uL (0.0-0.8); NEUTROPHILS # 9.9 10^3/uL (1.5-8.5); NEUTROPHILS % 79.8 % (36.0-66.0); PLATELET COUNT, AUTOMATED 179 10^3/uL (150-450); RED BLOOD COUNT 5.34 10^6/uL (4.30-6.10); WHITE BLOOD COUNT 12.4 10^3/uL (4.0-10.0)
[2021-01-04] MEDS ORDERED: ONDANSETRON 4MG/2ML VIAL IV ONE (06:20)
[2021-01-04] MEDS ORDERED: KETOROLAC 30 MG/ML 1ML VIAL IV ONE (06:20)
[2021-01-04] MEDS ORDERED: NS 1,000 ML IV ONE (06:20)
[2021-01-04 06:30] LABS: ALBUMIN 4.2 GM/DL (3.2-5.2); ALT/SGPT 103 U/L (12-78); BILIRUBIN,DIRECT 0.3 MG/DL (0.0-0.2); BILIRUBIN,TOTAL 0.9 MG/DL (0.2-1.0); BLOOD UREA NITROGEN 24 MG/DL (7-18); CALCIUM LEVEL 9.5 MG/DL (8.8-10.2); CARBON DIOXIDE LEVEL 27 MEQ/L (21-32); CHLORIDE LEVEL 107 MEQ/L (98-107); CPK CREATINE PHOSPHOKINASE 162 U/L (39-308); CREATININE FOR GFR 1.09 MG/DL (0.70-1.30); GLOMERULAR FILTRATION RATE > 60.0 (>49); GLUCOSE, FASTING 200 MG/DL (70-100); LIPASE 184 U/L (73-393); MB/CK RELATIVE INDEX 1.85 (< OR =4); POTASSIUM SERUM 4.4 MEQ/L (3.5-5.1); SODIUM LEVEL 140 MEQ/L (136-145); TOTAL PROTEIN 7.7 GM/DL (6.4-8.2); TROPONIN I 0.02 NG/ML (< 0.10)
[2021-01-04] MEDS ORDERED: ISOVUE-370 76% 100ML VIAL As Ordered ONE (06:42)
--- NOTE | 2021-01-04 08:01 | REPVR ---
PROCEDURE INFORMATION: Exam: CT Abdomen And Pelvis With Contrast Exam date and time: 01/04/2021 6:16 AM Age: 65 years old Clinical indication: Abdominal pain; Additional info: Lower abd pain HX diverticulitis TECHNIQUE: Imaging protocol: Computed tomography of the abdomen and pelvis with contrast. Radiation optimization: All CT scans at this facility use at least one of these dose optimization techniques: automated exposure control; mA and/or kV adjustment per patient size (includes targeted exams where dose is matched to clinical indication); or iterative reconstruction. Contrast material: ISOVUE 370; Contrast volume: 100 ml; Contrast route: INTRAVENOUS (IV); COMPARISON: CT ABD/PEL W/IV CONTRAST ONLY 12/03/2020 2:16 AM FINDINGS: Lungs: Interstitial prominence and mild dependent airspace disease. Liver: Diffuse fatty infiltration of the liver. Gallbladder and bile ducts: Unremarkable gallbladder. No biliary ductal dilatation. Pancreas: Stable 6 mm nodular hypodensity of fat attenuation in the pancreatic head. Spleen: No splenomegaly. Adrenal glands: Unremarkable adrenals. Kidneys and ureters: Multiple nonobstructing right renal calculi, the largest measuring 7 mm. Stomach and bowel: Wall thickening in the nondistended stomach and colon. Acute right-sided diverticulitis, involving the redundant sigmoid colon. Appendix: Focal enlargement of the distal appendix measuring 10 mm in maximum diameter, which was also present on the previous study. Intraperitoneal space: Infiltration of mesenteric fat and small quantity of fluid in the right lower quadrant. Vasculature: Normal caliber of the abdominal aorta. Lymph nodes: Subcentimeter lymph nodes. Urinary bladder: Minimal bladder wall thickening. Reproductive: Markedly enlarged prostate producing extrinsic compression of the bladder base with loss of normal fascial planes. Inhomogeneous prostate attenuation along with punctate calcifications. Bones/joints: Degenerative change and disc bulging. Soft tissues: Calcification at the gluteal muscle attachment sites. IMPRESSION: 1. Multiple nonobstructing right renal calculi, the largest measuring 7 mm. 2. Markedly enlarged prostate producing extrinsic compression of the bladder base with loss of normal fascial planes. 3. Wall thickening in the nondistended stomach and colon. 4. Acute right-sided diverticulitis, involving the redundant sigmoid colon. 5. Focal enlargement of the distal appendix measuring 10 mm in maximum diameter, which was also present on the previous study. 6. Additional findings as described above. Electronically signed by: Renny Ghosh On 01/04/2021 08:00:43 AM
[2021-01-04] MEDS ORDERED: PIPERACILLIN/TAZOBACTAM SOD 3.375 GM in D5W MINI-BAG PLUS 50 ML IV ONE (08:35)
[2021-01-04] MEDS ORDERED: FLAG500T PO (08:52)
[2021-01-04] MEDS ORDERED: CIPR-249 PO (08:52)
== END 2021-01-04 10:37 | disposition home or self-care (01) ==
LOC: M ED 23:06
DX: K57.32 Diverticulitis of large intestine without perforation or abscess without bleeding (principal); E11.9 Type 2 diabetes mellitus without complications; N40.0 Benign prostatic hyperplasia without lower urinary tract symptoms; N20.0 Calculus of kidney
CPT/HCPCS: 36415; 74177; 80048; 80076; 82550; 82553; 83605; 83690; 84484; 85025; 93005; 93041; 96361; 96365; 96375; 99284; J1885; J2405; J2543; Q9967

== ENCOUNTER → 2021-02-08 | Outpatient (CLI) | payer BC ==
[~2021-02-08] MED LIST changes: +CIPR-249 PO; +CVS1CAP2 PO
== END ==
LOC: M LABSMTC 10:25
PROVIDERS: ATTEND Anesthesiology
DX: Z01.812 Encounter for preprocedural laboratory examination (principal); Z20.822 Contact with and (suspected) exposure to COVID-19

== ENCOUNTER 2021-02-11 07:28 | Day surgery (SDC) | payer BC ==
[~2021-02-11] VITALS: Ht 167.6 cm; Wt 80.3 kg
[~2021-02-11 07:28] MED LIST changes: +LIDOCAINE 2% 100MG/5ML SDV (FOR ANES.) As Ordered ONE; +NS 1,000 ML IV ONE; +propofoL 200 MG/20 ML VIAL As Ordered ONE
--- NOTE | 2021-02-11 09:21 | ROOR ---
Patient Name: Darrell Salguero Procedure Date: 02/11/2021 8:47 AM Date of : 1955 Age: 66 Room: [facility] Gender: Male Note Status: Finalized Procedure: Colonoscopy Indications: Follow-up of diverticulitis Providers: Monroe Horner MD Referring MD: LARISA Li Requesting Provider: Medicines: Monitored Anesthesia Care Complications: No immediate complications. Procedure: Pre-Anesthesia Assessment: - Prior to the procedure, a History and Physical was performed, and patient medications and allergies were reviewed. The patient is competent. The risks and benefits of the procedure and the sedation options and risks were discussed with the patient. All questions were answered and informed consent was obtained. Patient identification and proposed procedure were verified by the physician, the nurse and the laborer golf course in the procedure room. Mental Status Examination: alert and oriented. Airway Examination: normal oropharyngeal airway and neck mobility. Prophylactic Antibiotics: The patient does not require prophylactic antibiotics. Prior Anticoagulants: The patient has taken no previous anticoagulant or antiplatelet agents. ASA Grade Assessment: II - A patient with mild systemic disease. After reviewing the risks and benefits, the patient was deemed in satisfactory condition to undergo the procedure. The anesthesia plan was to use monitored anesthesia care (MAC). Immediately prior to administration of medications, the patient was re-assessed for adequacy to receive sedatives. The heart rate, respiratory rate, oxygen saturations, blood pressure, adequacy of pulmonary ventilation, and response to care were monitored throughout the procedure. The physical status of the patient was re-assessed after the procedure. The Colonoscope was introduced through the anus and advanced to the cecum, identified by appendiceal orifice and ileocecal valve. The colonoscopy was performed without difficulty. The patient tolerated the procedure well. The quality of the bowel preparation was excellent. Findings: The perianal and digital rectal examinations were normal. Multiple medium-mouthed diverticula were found in the sigmoid colon. Impression: - Diverticulosis in the sigmoid colon. - No specimens collected. Recommendation: - Discharge patient to home. - Resume previous diet. - Continue present medications. - Return to endoscopist as previously scheduled. Procedure Code(s): --- Professional --- 99691, Colonoscopy, flexible; diagnostic, including collection of specimen(s) by brushing or washing, when performed (separate procedure) Diagnosis Code(s): --- Professional --- K57.32, Diverticulitis of large intestine without perforation or abscess without bleeding K57.30, Diverticulosis of large intestine without perforation or abscess without bleeding CPT copyright 2019 [employer]. All rights reserved. The codes documented in this report are preliminary and upon medical record coder review may be revised to meet current compliance requirements. Monroe Horner MD Monroe Horner MD 02/11/2021 9:21:10 AM Electronically signed by Monroe Horner MD Number of Addenda: 0 Note Initiated On: 02/11/2021 8:47 AM Estimated Blood Loss: Estimated blood loss: none.
[2021-02-11 09:35] VITALS: BP 146/79
== END 2021-02-11 08:48 | disposition home or self-care (01) ==
LOC: M OPP 07:28
PROVIDERS: ATTEND Surgery
DX: K57.30 Diverticulosis of large intestine without perforation or abscess without bleeding (principal); K57.32 Diverticulitis of large intestine without perforation or abscess without bleeding; E11.9 Type 2 diabetes mellitus without complications; Z79.84 Long term (current) use of oral hypoglycemic drugs; Z79.899 Other long term (current) drug therapy

== ENCOUNTER → 2021-04-01 | Outpatient (REF) | payer BC ==
[~2021-04-01] MED LIST changes: -LIDOCAINE 2% 100MG/5ML SDV (FOR ANES.) As Ordered ONE; -NS 1,000 ML IV ONE; -propofoL 200 MG/20 ML VIAL As Ordered ONE
[2021-04-01 13:03] LABS: BASO % 0.5 % (0.0-1.0); EOS # 0.2 10^3/uL (0.0-0.5); EOS % 2.7 % (0.0-3.0); HEMATOCRIT 50.8 % (42.0-52.0); HEMOGLOBIN 16.4 g/dl (13.5-17.5); LYMPH # 2.1 10^3/uL (1.5-5.0); LYMPH % 24.6 % (24.0-44.0); MEAN CORPUSCULAR HEMOGLOBIN 30.6 pg (27.0-33.0); MEAN CORPUSCULAR HGB CONC 32.3 g/dl (32.0-36.5); MEAN CORPUSCULAR VOLUME 94.8 fl (80.0-96.0); PLATELET COUNT, AUTOMATED 172 10^3/uL (150-450); RED BLOOD COUNT 5.36 10^6/uL (4.30-6.10); WHITE BLOOD COUNT 8.4 10^3/uL (4.0-10.0)
[2021-04-01 14:27] LABS: ALBUMIN 3.8 GM/DL (3.2-5.2); ALT/SGPT 84 U/L (12-78); BILIRUBIN,TOTAL 1.2 MG/DL (0.2-1.0); BLOOD UREA NITROGEN 19 MG/DL (7-18); CALCIUM LEVEL 9.5 MG/DL (8.8-10.2); CARBON DIOXIDE LEVEL 31 MEQ/L (21-32); CHLORIDE LEVEL 105 MEQ/L (98-107); CHOLESTEROL LEVEL 106 MG/DL (<200); CHOLESTEROL RISK RATIO 3.028 (<5); CREATININE FOR GFR 1.08 MG/DL (0.70-1.30); FOLATE 17.4 NG/ML; FREE T4 0.94 NG/DL (0.76-1.46); GLOMERULAR FILTRATION RATE > 60.0 (>49); GLUCOSE, FASTING 165 MG/DL (70-100); HDL CHOLESTEROL 35 MG/DL (>40); LDL CHOLESTEROL 41 MG/DL (<100); MALB URINE SIEMENS 30.8 MG/L; MAU/CREAT RATIO 19.1 MCG/MG (0.0-30.0); NON-HDL-C 71 MG/DL; SODIUM LEVEL 141 MEQ/L (136-145); TOTAL PROTEIN 7.1 GM/DL (6.4-8.2); TRIGLYCERIDES LEVEL 149 MG/DL (<150); VITAMIN B12 LEVEL 602 PG/ML
[2021-04-03 00:07] LABS: PSA FREE 1.23 ng/mL; PSA TOTAL 5.6 ng/mL (0.0-4.0)
== END ==
LOC: M SFHCADAM 07:59
PROVIDERS: ATTEND Physician Assistant
DX: E11.9 Type 2 diabetes mellitus without complications (principal); E78.5 Hyperlipidemia, unspecified; R97.20 Elevated prostate specific antigen [PSA]; Z12.5 Encounter for screening for malignant neoplasm of prostate
CPT/HCPCS: 80053; 80061; 82043; 82607; 82746; 84154; 84439; 84443; 85025; G0103

== ENCOUNTER → 2021-04-13 | Outpatient (REF) | payer BC ==
[2021-04-13 20:08] LABS: HEMOGLOBIN A1c 7.1 %
== END ==
LOC: M SFHCADAM 15:14
PROVIDERS: ATTEND Physician Assistant
DX: E11.9 Type 2 diabetes mellitus without complications (principal)

== ENCOUNTER → 2022-04-22 | Outpatient (REF) | payer BC ==
[~2022-04-22] MED LIST changes: -CEFD1CAP8 PO; +CEFD300C41 PO
[2022-04-22 13:41] LABS: HEMATOCRIT 48.8 % (42.0-52.0); HEMOGLOBIN 16.2 g/dl (13.5-17.5); MEAN CORPUSCULAR HEMOGLOBIN 30.9 pg (27.0-33.0); MEAN CORPUSCULAR HGB CONC 33.2 g/dl (32.0-36.5); PLATELET COUNT, AUTOMATED 175 10^3/uL (150-450); RED BLOOD COUNT 5.25 10^6/uL (4.30-6.10); WHITE BLOOD COUNT 6.8 10^3/uL (4.0-10.0)
[2022-04-22 14:08] LABS: ALBUMIN 4.2 G/DL (3.2-5.2); ALKALINE PHOSPHATASE 71 U/L (46-116); ALT/SGPT 87 U/L (7.0-40); AST/SGOT 38 U/L (<34); BLOOD UREA NITROGEN 19 MG/DL (9-23); CALCIUM LEVEL 9.8 MG/DL (8.3-10.6); CARBON DIOXIDE LEVEL 30 MMOL/L (20-31); CHLORIDE LEVEL 101 MMOL/L (98-107); CHOLESTEROL LEVEL 87 MG/DL (<200); CHOLESTEROL RISK RATIO 2.55 (<5); CREATININE FOR GFR 0.94 MG/DL (0.70-1.30); GLOMERULAR FILTRATION RATE > 60.0 (>49); GLUCOSE, FASTING 312 MG/DL (74-106); HDL CHOLESTEROL 34.1 MG/DL (>40); LDL CHOLESTEROL 30.1 MG/DL (<100); NON-HDL-C 53 MG/DL; POTASSIUM SERUM 5.3 MMOL/L (3.5-5.1); SODIUM LEVEL 138 MMOL/L (136-145); THYROID STIMULATING HORMONE 1.704 uIU/ML (0.55-4.78); TRIGLYCERIDES LEVEL 114 MG/DL (<150)
[2022-04-22 14:10] LABS: FREE T4 1.18 NG/DL (0.89-1.76); VITAMIN B12 LEVEL 530 PG/ML (211-911)
[2022-04-22 14:20] LABS: FOLATE 20.8 NG/ML (>5.4)
[2022-04-22 14:49] LABS: CREATININE, URINE 162.1 MG/DL
[2022-04-22 14:50] LABS: MAU/CREAT RATIO 28.9 MCG/MG (0.0-30.0)
[2022-04-22 15:08] LABS: HEMOGLOBIN A1c 10.2 % (4.0-6.0)
== END ==
LOC: M SFHCADAM 07:26
PROVIDERS: ATTEND Physician Assistant
DX: E78.00 Pure hypercholesterolemia, unspecified (principal); E11.9 Type 2 diabetes mellitus without complications; K76.0 Fatty (change of) liver, not elsewhere classified

== ENCOUNTER → 2022-09-16 | Outpatient (CLI) | payer BC ==
[2022-09-19 23:10] LABS: PSA % FREE 24.1 % (.); PSA FREE 1.83 ng/mL; PSA TOTAL 7.6 ng/mL (0.0-4.0)
== END ==
LOC: M WUC 13:31
PROVIDERS: ATTEND Urology
DX: R97.20 Elevated prostate specific antigen [PSA] (principal)

== ENCOUNTER → 2022-09-21 | Outpatient (REF) | payer BC ==
[2022-09-21 16:53] LABS: ALBUMIN 4.2 G/DL (3.2-5.2); ALKALINE PHOSPHATASE 44 U/L (46-116); ALT/SGPT 65 U/L (7.0-40); AST/SGOT 32 U/L (<34); BLOOD UREA NITROGEN 24 MG/DL (9-23); CALCIUM LEVEL 9.8 MG/DL (8.3-10.6); CARBON DIOXIDE LEVEL 28 MMOL/L (20-31); CHLORIDE LEVEL 106 MMOL/L (98-107); CREATININE FOR GFR 0.94 MG/DL (0.70-1.30); GLOMERULAR FILTRATION RATE > 60.0 (>49); GLUCOSE, FASTING 98 MG/DL (74-106); POTASSIUM SERUM 4.7 MMOL/L (3.5-5.1); SODIUM LEVEL 142 MMOL/L (136-145); TOTAL PROTEIN 6.7 G/DL (5.7-8.2)
[2022-09-21 17:36] LABS: HEMOGLOBIN A1c 6.6 % (4.0-6.0)
== END ==
LOC: M SFHCADAM 14:51
PROVIDERS: ATTEND Physician Assistant
DX: E11.9 Type 2 diabetes mellitus without complications (principal); I10 Essential (primary) hypertension

== ENCOUNTER → 2022-12-27 | Outpatient (REF) | payer BC ==
[2022-12-27 13:38] LABS: BLOOD UREA NITROGEN 26 MG/DL (9-23); CALCIUM LEVEL 9.3 MG/DL (8.3-10.6); CARBON DIOXIDE LEVEL 29 MMOL/L (20-31); CHLORIDE LEVEL 105 MMOL/L (98-107); CREATININE FOR GFR 0.94 MG/DL (0.70-1.30); GLOMERULAR FILTRATION RATE > 60.0 (>49); GLUCOSE, FASTING 93 MG/DL (74-106); POTASSIUM SERUM 4.6 MMOL/L (3.5-5.1); SODIUM LEVEL 140 MMOL/L (136-145)
[2022-12-27 14:06] LABS: HEMOGLOBIN A1c 5.7 % (4.0-6.0)
== END ==
LOC: M SFHCADAM 07:29
PROVIDERS: ATTEND Physician Assistant
DX: E11.9 Type 2 diabetes mellitus without complications (principal)

== ENCOUNTER 2023-01-09 05:40 | Emergency (ER) | payer BC, MEDICARE ==
[~2023-01-09] VITALS: Ht 167.6 cm; Wt 76.5 kg
[2023-01-09] MEDS ORDERED: NS 1,000 ML IV ONE (06:05)
[2023-01-09] MEDS ORDERED: ONDANSETRON 4MG 2ML VIAL IV ONE (06:15)
[2023-01-09 06:21] LABS: BASO # 0.1 10^3/uL (0.0-0.2); BASO % 0.6 % (0.0-1.0); EOS # 0.3 10^3/uL (0.0-0.5); EOS % 3.6 % (0.0-3.0); HEMATOCRIT 49.8 % (42.0-52.0); HEMOGLOBIN 16.5 g/dl (13.5-17.5); LYMPH # 2.6 10^3/uL (1.5-5.0); LYMPH % 32.9 % (24.0-44.0); MEAN CORPUSCULAR HEMOGLOBIN 30.8 pg (27.0-33.0); MEAN CORPUSCULAR HGB CONC 33.1 g/dl (32.0-36.5); MEAN CORPUSCULAR VOLUME 92.9 fl (80.0-96.0); MONO # 0.9 10^3/uL (0.0-0.8); MONO % 11.8 % (2.0-8.0); NEUTROPHILS # 3.9 10^3/uL (1.5-8.5); NEUTROPHILS % 50.7 % (36.0-66.0); PLATELET COUNT, AUTOMATED 195 10^3/uL (150-450); RED BLOOD COUNT 5.36 10^6/uL (4.30-6.10); WHITE BLOOD COUNT 7.8 10^3/uL (4.0-10.0)
[2023-01-09 06:47] LABS: LIPASE 94 U/L (12-53)
[2023-01-09 06:49] LABS: ALBUMIN 4.2 G/DL (3.2-5.2); ALKALINE PHOSPHATASE 61 U/L (46-116); ALT/SGPT 74 U/L (7.0-40); AST/SGOT 44 U/L (<34); BILIRUBIN,DIRECT 0.4 MG/DL (<0.4); BILIRUBIN,TOTAL 1.2 MG/DL (0.3-1.2); BLOOD UREA NITROGEN 28 MG/DL (9-23); CALCIUM LEVEL 9.8 MG/DL (8.3-10.6); CARBON DIOXIDE LEVEL 25 MMOL/L (20-31); CHLORIDE LEVEL 105 MMOL/L (98-107); CREATININE FOR GFR 1.08 MG/DL (0.70-1.30); GLOMERULAR FILTRATION RATE > 60.0 (>49); GLUCOSE, FASTING 130 MG/DL (74-106); POTASSIUM SERUM 4.1 MMOL/L (3.5-5.1); SODIUM LEVEL 140 MMOL/L (136-145); TOTAL PROTEIN 7.2 G/DL (5.7-8.2)
[2023-01-09] MEDS ORDERED: KETOROLAC 30 MG/ML 1ML VIAL IV ONE (06:55)
[2023-01-09] MEDS ORDERED: ISOVUE-370 76% 100ML VIAL As Ordered ONE (07:19)
[2023-01-09] MEDS ORDERED: TAMSULOSIN 0.4 MG CAP PO ONE (08:45)
[2023-01-09] MEDS ORDERED: metroNIDAZOLE (FLAGYL) 500MG TABLET PO ONE (08:45)
[2023-01-09] MEDS ORDERED: CIPROFLOXACIN 500MG TABLET PO ONE (08:45)
[2023-01-09] MEDS ORDERED: FLOM0.4C39 PO (08:54)
[2023-01-09] MEDS ORDERED: HYDR-3713 PO (08:54)
[2023-01-09] MEDS ORDERED: CIPR-249 PO (08:54)
[2023-01-09] MEDS ORDERED: KETO10TAB PO (08:54)
[2023-01-09] MEDS ORDERED: METR-265 PO (08:54)
[2023-01-09 09:45] VITALS: BP 127/64; TEMP 97.7; O2SAT 96
== END 2023-01-09 09:59 | disposition home or self-care (01) ==
LOC: M ED 05:40
DX: N13.0 Hydronephrosis with ureteropelvic junction obstruction (principal); K57.30 Diverticulosis of large intestine without perforation or abscess without bleeding; E11.9 Type 2 diabetes mellitus without complications; E78.5 Hyperlipidemia, unspecified; N40.0 Benign prostatic hyperplasia without lower urinary tract symptoms; Z79.2 Long term (current) use of antibiotics; Z79.4 Long term (current) use of insulin; Z79.899 Other long term (current) drug therapy
CPT/HCPCS: 74177; 80048; 80076; 81001; 83605; 83690; 85025; 93041; 96361; 96374; 96375; 99284; J1885; J2405; Q9967

== ENCOUNTER → 2023-01-12 | Outpatient (REF) | payer BC ==
[~2023-01-12] MED LIST changes: +FLOM0.4C39 PO; +HYDR-3713 PO; +KETO10TAB PO; +METR-265 PO
== END ==
LOC: M SMT 13:10
PROVIDERS: ATTEND Urology
DX: Z01.818 Encounter for other preprocedural examination (principal); N20.0 Calculus of kidney; N39.0 Urinary tract infection, site not specified

== ENCOUNTER → 2023-01-19 | Outpatient (CLI) | payer BC ==
[~2023-01-19] MED LIST changes: +BAYE81TA10 PO; +DULA3PEN SC; +FARX1TAB3 PO; +LOSA25TA13 PO; +OCUVTAB4 PO; +ONDA-83 PO; +TAMS1CAP17 PO
== END ==
LOC: M PLAIMG 11:15
PROVIDERS: ATTEND Urology
DX: Z01.818 Encounter for other preprocedural examination (principal); N20.0 Calculus of kidney

== ENCOUNTER 2023-01-20 08:52 | Day surgery (SDC) | payer BC ==
[~2023-01-20] VITALS: Ht 167.6 cm; Wt 74.2 kg
[~2023-01-20 08:52] MED LIST changes: +ceFAZolin SOD 2 GM in IV 1 EA IV ONE
[2023-01-20] MEDS ORDERED: LR 1,000 ML IV SCH ×2 (09:05→12:40)
[2023-01-20] MEDS ORDERED: INSULIN LISPRO (NovoLOG) PER UNIT SC PRN ×2 (09:05→12:40)
[2023-01-20] MEDS ORDERED: LIDOCAINE 2% 100MG/5ML SDV (FOR ANES.) As Ordered ONE (09:45)
[2023-01-20] MEDS ORDERED: MIDAZOLAM INJ 2MG/2ML VIAL As Ordered ONE (09:45)
[2023-01-20] MEDS ORDERED: ONDANSETRON 4MG 2ML VIAL As Ordered ONE (09:45)
[2023-01-20] MEDS ORDERED: propofoL 200 MG/20 ML VIAL As Ordered ONE (09:45)
[2023-01-20] MEDS ORDERED: fentaNYL 100 MCG/2 ML INJECTION As Ordered ONE (09:45)
[2023-01-20] MEDS ORDERED: ISOVUE-300 61% 100ML VIAL As Ordered ONE (09:58)
[2023-01-20] MEDS ORDERED: ACETAMINOPHEN 1000MG 100ML IV BAG As Ordered ONE (10:50)
[2023-01-20] MEDS ORDERED: KETOROLAC 60MG 2ML VIAL As Ordered ONE (11:50)
[2023-01-20] MEDS ORDERED: PHENYLephrine 500MCG 5ML (100MCG/ML) SYRINGE As Ordered ONE (11:56)
[2023-01-20] MEDS ORDERED: oxyCODONE 5MG TAB PO PRN (12:40)
[2023-01-20] MEDS ORDERED: HYDROMORPHONE HCL 0.5 MG/ 0.5 ML SYRINGE IV PRN (12:40)
[2023-01-20] MEDS ORDERED: ONDANSETRON 4MG 2ML VIAL IV PRN (12:40)
[2023-01-20] MEDS ORDERED: fentaNYL 100 MCG/2 ML INJECTION IV PRN (12:40)
[2023-01-20] MEDS ORDERED: PERCOCET 5MG/325MG TAB PO PRN (13:10)
[2023-01-20 14:36] VITALS: BP 170/84; TEMP 97; O2SAT 96
== END 2023-01-20 14:36 | disposition home or self-care (01) ==
LOC: M SDC 08:52
PROVIDERS: ATTEND Urology
DX: N20.1 Calculus of ureter (principal); N21.0 Calculus in bladder; I10 Essential (primary) hypertension; E78.5 Hyperlipidemia, unspecified; E11.9 Type 2 diabetes mellitus without complications; N40.0 Benign prostatic hyperplasia without lower urinary tract symptoms; K57.92 Diverticulitis of intestine, part unspecified, without perforation or abscess without bleeding; Z79.84 Long term (current) use of oral hypoglycemic drugs; Z79.82 Long term (current) use of aspirin; Z79.899 Other long term (current) drug therapy
CPT/HCPCS: 52341; 52356; 76000; 82365; C1769; C1894; C2617; J0131; J0690; J1100; J1885; J2250; J2371; J2405; J3010; Q9967

== ENCOUNTER → 2023-04-10 | Outpatient (REF) | payer BC ==
[~2023-04-10] MED LIST changes: -CEFD300C41 PO; +CEFD300C42 PO; -ceFAZolin SOD 2 GM in IV 1 EA IV ONE
[2023-04-10 13:41] LABS: HEMOGLOBIN A1c 5.6 % (4.0-6.0)
[2023-04-10 13:49] LABS: BLOOD UREA NITROGEN 23 MG/DL (9-23); CALCIUM LEVEL 9.9 MG/DL (8.3-10.6); CARBON DIOXIDE LEVEL 30 MMOL/L (20-31); CHLORIDE LEVEL 105 MMOL/L (98-107); CREATININE FOR GFR 1.01 MG/DL (0.70-1.30); GLOMERULAR FILTRATION RATE > 60.0 (>49); GLUCOSE, FASTING 182 MG/DL (74-106); POTASSIUM SERUM 4.9 MMOL/L (3.5-5.1); SODIUM LEVEL 142 MMOL/L (136-145)
== END ==
LOC: M SFHCADAM 10:31
PROVIDERS: ATTEND Physician Assistant
DX: E11.9 Type 2 diabetes mellitus without complications (principal); I10 Essential (primary) hypertension

== ENCOUNTER → 2023-08-02 | Outpatient (REF) | payer BC ==
[~2023-08-02] MED LIST changes: +CEFD1CAP9 PO; -CEFD300C42 PO
[2023-08-02 14:09] LABS: HEMATOCRIT 53.9 % (42.0-52.0); HEMOGLOBIN 18.1 g/dl (13.5-17.5); MEAN CORPUSCULAR HGB CONC 33.6 g/dl (32.0-36.5); MEAN CORPUSCULAR VOLUME 92.5 fl (80.0-96.0); PLATELET COUNT, AUTOMATED 182 10^3/uL (150-450); RED BLOOD COUNT 5.83 10^6/uL (4.30-6.10); WHITE BLOOD COUNT 7.1 10^3/uL (4.0-10.0)
[2023-08-02 14:16] LABS: HEMOGLOBIN A1c 6.4 % (4.0-6.0)
[2023-08-02 14:23] LABS: CREATININE, URINE 76.1 MG/DL; MAU/CREAT RATIO 9.1 MCG/MG (0.0-30.0)
[2023-08-02 14:28] LABS: THYROID STIMULATING HORMONE 1.516 uIU/ML (0.55-4.78)
[2023-08-02 14:29] LABS: ALBUMIN 4.3 G/DL (3.2-5.2); ALKALINE PHOSPHATASE 52 U/L (46-116); ALT/SGPT 61 U/L (7.0-40); AST/SGOT 27 U/L (<34); BILIRUBIN,TOTAL 1.2 MG/DL (0.3-1.2); BLOOD UREA NITROGEN 22 MG/DL (9-23); CALCIUM LEVEL 9.2 MG/DL (8.3-10.6); CARBON DIOXIDE LEVEL 30 MMOL/L (20-31); CHLORIDE LEVEL 105 MMOL/L (98-107); CHOLESTEROL LEVEL 101 MG/DL (<200); CHOLESTEROL RISK RATIO 2.99 (<5); CREATININE FOR GFR 0.88 MG/DL (0.70-1.30); FOLATE 22.3 NG/ML (>5.4); FREE T4 0.98 NG/DL (0.89-1.76); GLOMERULAR FILTRATION RATE > 60.0 (>49); GLUCOSE, FASTING 106 MG/DL (74-106); HDL CHOLESTEROL 33.7 MG/DL (>40); LDL CHOLESTEROL 45.3 MG/DL (<100); NON-HDL-C 67.3 MG/DL; POTASSIUM SERUM 5.5 MMOL/L (3.5-5.1); SODIUM LEVEL 141 MMOL/L (136-145); TRIGLYCERIDES LEVEL 110 MG/DL (<150)
[2023-08-02 14:30] LABS: VITAMIN B12 LEVEL 399 PG/ML (211-911)
== END ==
LOC: M SFHCADAM 07:07
PROVIDERS: ATTEND Physician Assistant
DX: E78.00 Pure hypercholesterolemia, unspecified (principal); E08.65 Diabetes mellitus due to underlying condition with hyperglycemia; I10 Essential (primary) hypertension

== ENCOUNTER → 2023-08-21 | Outpatient (REF) | payer BC ==
[2023-08-21 13:51] LABS: ALKALINE PHOSPHATASE 51 U/L (46-116); ALT/SGPT 61 U/L (7.0-40); AST/SGOT 33 U/L (<34); BILIRUBIN,TOTAL 1.1 MG/DL (0.3-1.2); BLOOD UREA NITROGEN 21 MG/DL (9-23); CALCIUM LEVEL 9.4 MG/DL (8.3-10.6); CARBON DIOXIDE LEVEL 30 MMOL/L (20-31); CHLORIDE LEVEL 105 MMOL/L (98-107); CREATININE FOR GFR 0.94 MG/DL (0.70-1.30); GLOMERULAR FILTRATION RATE > 60.0 (>49); GLUCOSE, FASTING 109 MG/DL (74-106); MAGNESIUM LEVEL 1.9 MG/DL (1.8-2.4); POTASSIUM SERUM 4.5 MMOL/L (3.5-5.1); SODIUM LEVEL 143 MMOL/L (136-145); TOTAL PROTEIN 6.5 G/DL (5.7-8.2)
== END ==
LOC: M SFHCADAM 07:09
PROVIDERS: ATTEND Physician Assistant
DX: N20.0 Calculus of kidney (principal); I10 Essential (primary) hypertension; E08.65 Diabetes mellitus due to underlying condition with hyperglycemia; E78.00 Pure hypercholesterolemia, unspecified; I49.9 Cardiac arrhythmia, unspecified

== ENCOUNTER → 2023-09-07 | Outpatient (CLI) | payer BC | LOC: M PLAIMG 13:20 | PROVIDERS: ATTEND Physician Assistant | DX: I49.8 Other specified cardiac arrhythmias (principal) ==

== ENCOUNTER → 2023-09-08 | Outpatient (CLI) | payer BC ==
[2023-09-10 15:06] LABS: PSA % FREE 24.8 % (.); PSA FREE 2.18 ng/mL; PSA TOTAL 8.8 ng/mL (0.0-4.0)
== END ==
LOC: M PLAIMG 07:33
PROVIDERS: ATTEND Urology
DX: R97.20 Elevated prostate specific antigen [PSA] (principal); N20.0 Calculus of kidney

== ENCOUNTER → 2023-11-29 | Outpatient (REF) | payer BC ==
[~2023-11-29] MED LIST changes: -ROSU10TA6 PO; +ROSU10TA61 PO
[2023-11-29 14:42] LABS: BLOOD UREA NITROGEN 29 MG/DL (9-23); CALCIUM LEVEL 9.7 MG/DL (8.3-10.6); CARBON DIOXIDE LEVEL 29 MMOL/L (20-31); CHLORIDE LEVEL 105 MMOL/L (98-107); CREATININE FOR GFR 0.95 MG/DL (0.70-1.30); GLOMERULAR FILTRATION RATE > 60.0 (>49); GLUCOSE, FASTING 97 MG/DL (74-106); MAGNESIUM LEVEL 2.1 MG/DL (1.8-2.4); POTASSIUM SERUM 4.8 MMOL/L (3.5-5.1); SODIUM LEVEL 140 MMOL/L (136-145)
[2023-11-29 14:46] LABS: HEMOGLOBIN A1c 5.9 % (4.0-6.0)
== END ==
LOC: M SFHCADAM 07:04
PROVIDERS: ATTEND Physician Assistant
DX: E11.9 Type 2 diabetes mellitus without complications (principal); I49.8 Other specified cardiac arrhythmias; I10 Essential (primary) hypertension

== ENCOUNTER → 2023-12-01 | Outpatient (REF) | payer BC ==
[2023-12-01 17:48] LABS: APPEARANCE, URINE CLOUDY (CLEAR); BACTERIA, URINE AUTO NEGATIVE (NEGATIVE); BILIRUBIN, URINE AUTO NEGATIVE (NEGATIVE); BLOOD, URINE BLOOD NEGATIVE (NEGATIVE); COLOR, URINE YELLOW (YELLOW); GLUCOSE, URINE (UA) AUTO 3+ mg/dL (NEGATIVE); KETONE, URINE AUTO NEGATIVE (NEGATIVE); LEUKOCYTE ESTERASE, URINE AUTO NEGATIVE (NEGATIVE); MUCUS, URINE SMALL (NEGATIVE); NITRITE, URINE AUTO NEGATIVE (NEGATIVE); PROTEIN, URINE AUTO NEGATIVE (NEGATIVE); RBC, URINE AUTO 0 /HPF (0-3); SPECIFIC GRAVITY URINE AUTO 1.022 (1.002-1.035); SQUAMOUS EPITHELIAL CELL UR AU 0 /HPF (0-6); UROBILINOGEN, URINE AUTO 0.2 mg/dL (0.0-2.0); WBC, URINE AUTO 2 /HPF (0-3)
== END ==
LOC: M SFHCADAM 17:01
PROVIDERS: ATTEND Physician Assistant
DX: R31.9 Hematuria, unspecified (principal)

== ENCOUNTER → 2023-12-29 | Outpatient (CLI) | payer BC ==
[2024-01-01 13:42] LABS: PSA FREE 1.8 ng/mL; PSA TOTAL 5.9 ng/mL (< OR = 4.0)
== END ==
LOC: M PLALAB 07:15
PROVIDERS: ATTEND Urology
DX: R97.20 Elevated prostate specific antigen [PSA] (principal)

== ENCOUNTER → 2024-02-26 | Outpatient (CLI) | payer BC ==
[2024-02-26 11:02] LABS: HEMATOCRIT 50.5 % (42.0-52.0); HEMOGLOBIN 16.6 g/dl (13.5-17.5); MEAN CORPUSCULAR HEMOGLOBIN 30.8 pg (27.0-33.0); MEAN CORPUSCULAR HGB CONC 32.9 g/dl (32.0-36.5); MEAN CORPUSCULAR VOLUME 93.7 fl (80.0-96.0); PLATELET COUNT, AUTOMATED 171 10^3/uL (150-450); RED BLOOD COUNT 5.39 10^6/uL (4.30-6.10); WHITE BLOOD COUNT 8.4 10^3/uL (4.0-10.0)
[2024-02-26 11:26] LABS: BLOOD UREA NITROGEN 21 MG/DL (9-23); CALCIUM LEVEL 9.9 MG/DL (8.3-10.6); CARBON DIOXIDE LEVEL 28 MMOL/L (20-31); CHLORIDE LEVEL 105 MMOL/L (98-107); CREATININE FOR GFR 0.86 MG/DL (0.70-1.30); GLOMERULAR FILTRATION RATE > 60.0 (>49); GLUCOSE, FASTING 121 MG/DL (74-106); POTASSIUM SERUM 4.5 MMOL/L (3.5-5.1); SODIUM LEVEL 143 MMOL/L (136-145)
== END ==
LOC: M PLALAB 06:50
PROVIDERS: ATTEND Urology
DX: Z01.818 Encounter for other preprocedural examination (principal); N21.0 Calculus in bladder; N39.0 Urinary tract infection, site not specified

== ENCOUNTER → 2024-02-26 | Outpatient (CLI) | payer BC | LOC: M LAB 09:02 | PROVIDERS: ATTEND Urology | DX: Z01.818 Encounter for other preprocedural examination (principal); N21.0 Calculus in bladder ==

== ENCOUNTER 2024-04-22 23:01 | Emergency (ER) | payer BC, MEDICARE ==
[~2024-04-22] VITALS: Ht 167.6 cm; Wt 78.2 kg
[2024-04-22 23:48] LABS: BASO # 0.1 10^3/uL (0.0-0.2); BASO % 0.5 % (0.0-1.0); EOS # 0.2 10^3/uL (0.0-0.5); EOS % 1.9 % (0.0-3.0); HEMATOCRIT 48.5 % (42.0-52.0); HEMOGLOBIN 16.2 g/dl (13.5-17.5); LYMPH # 2.5 10^3/uL (1.5-5.0); LYMPH % 22.7 % (24.0-44.0); MEAN CORPUSCULAR HEMOGLOBIN 30.7 pg (27.0-33.0); MEAN CORPUSCULAR HGB CONC 33.4 g/dl (32.0-36.5); MONO % 9.6 % (2.0-8.0); NEUTROPHILS # 7.1 10^3/uL (1.5-8.5); NEUTROPHILS % 65.1 % (36.0-66.0); PLATELET COUNT, AUTOMATED 174 10^3/uL (150-450); RED BLOOD COUNT 5.27 10^6/uL (4.30-6.10); WHITE BLOOD COUNT 10.9 10^3/uL (4.0-10.0)
[2024-04-23 00:11] LABS: LIPASE 57 U/L (12-53)
[2024-04-23 00:13] LABS: ALBUMIN 3.9 G/DL (3.2-5.2); ALKALINE PHOSPHATASE 52 U/L (40-129); ALT/SGPT 57 U/L (7.0-40); AST/SGOT 32 U/L (<34); BILIRUBIN,DIRECT 0.3 MG/DL (<0.4); BLOOD UREA NITROGEN 28 MG/DL (9-23); CALCIUM LEVEL 10.3 MG/DL (8.3-10.6); CARBON DIOXIDE LEVEL 29 MMOL/L (20-31); CHLORIDE LEVEL 103 MMOL/L (98-107); CREATININE FOR GFR 1.22 MG/DL (0.70-1.30); GLOMERULAR FILTRATION RATE > 60.0 (>49); GLUCOSE, FASTING 132 MG/DL (74-106); POTASSIUM SERUM 3.9 MMOL/L (3.5-5.1); SODIUM LEVEL 139 MMOL/L (136-145); TOTAL PROTEIN 6.9 G/DL (5.7-8.2)
[2024-04-23] MEDS: ONDANSETRON 4MG 2ML VIAL IV ONE (00:47)
[2024-04-23] MEDS: KETOROLAC 30 MG/ML 1ML VIAL IV ONE (00:48)
[2024-04-23] MEDS ORDERED: ONDA-282 PO (02:14)
[2024-04-23] MEDS ORDERED: KETO10TAB PO (02:14)
[2024-04-23 02:28] VITALS: BP 105/69; TEMP 97.1; O2SAT 99
[2024-04-23] MEDS: OXYCODONE/APAP 5MG/325MG(HOME DOSE PACK) PO ONE (02:35)
== END 2024-04-23 02:49 | disposition home or self-care (01) ==
LOC: M ED 23:01
DX: N20.1 Calculus of ureter (principal); E78.5 Hyperlipidemia, unspecified; E11.9 Type 2 diabetes mellitus without complications; K57.90 Diverticulosis of intestine, part unspecified, without perforation or abscess without bleeding; Z87.442 Personal history of urinary calculi; Z79.82 Long term (current) use of aspirin; Z79.4 Long term (current) use of insulin; Z79.83 Long term (current) use of bisphosphonates; Z79.899 Other long term (current) drug therapy
CPT/HCPCS: 74176; 80048; 80076; 81001; 83690; 85025; 96374; 96375; 99283; J1885; J2405

== ENCOUNTER → 2024-05-09 | Outpatient (REF) | payer BC ==
[~2024-05-09] MED LIST changes: +FINA5TAB2 PO; +HYDR12.55 PO; +METO1TAB32 PO; +ONDA-282 PO
[2024-05-09 13:26] LABS: BLOOD UREA NITROGEN 25 MG/DL (9-23); CALCIUM LEVEL 9.8 MG/DL (8.3-10.6); CARBON DIOXIDE LEVEL 33 MMOL/L (20-31); CHLORIDE LEVEL 100 MMOL/L (98-107); CREATININE FOR GFR 1.03 MG/DL (0.70-1.30); GLOMERULAR FILTRATION RATE > 60.0 (>49); GLUCOSE, FASTING 153 MG/DL (74-106); POTASSIUM SERUM 4.3 MMOL/L (3.5-5.1); SODIUM LEVEL 143 MMOL/L (136-145)
[2024-05-09 13:33] LABS: BASO # 0.1 10^3/uL (0.0-0.2); BASO % 0.9 % (0.0-1.0); EOS # 0.3 10^3/uL (0.0-0.5); EOS % 3.2 % (0.0-3.0); HEMATOCRIT 51.7 % (42.0-52.0); HEMOGLOBIN 16.7 g/dl (13.5-17.5); LYMPH # 2.2 10^3/uL (1.5-5.0); LYMPH % 26.4 % (24.0-44.0); MEAN CORPUSCULAR HGB CONC 32.3 g/dl (32.0-36.5); MONO # 0.7 10^3/uL (0.0-0.8); MONO % 8.8 % (2.0-8.0); NEUTROPHILS # 4.9 10^3/uL (1.5-8.5); NEUTROPHILS % 60.5 % (36.0-66.0); PLATELET COUNT, AUTOMATED 242 10^3/uL (150-450); RED BLOOD COUNT 5.56 10^6/uL (4.30-6.10); WHITE BLOOD COUNT 8.2 10^3/uL (4.0-10.0)
[2024-05-09 13:39] LABS: APPEARANCE, URINE CLOUDY (CLEAR); BACTERIA, URINE AUTO NEGATIVE (NEGATIVE); BILIRUBIN, URINE AUTO NEGATIVE (NEGATIVE); BLOOD, URINE BLOOD NEGATIVE (NEGATIVE); COLOR, URINE YELLOW (YELLOW); GLUCOSE, URINE (UA) AUTO 3+ mg/dL (NEGATIVE); KETONE, URINE AUTO NEGATIVE (NEGATIVE); LEUKOCYTE ESTERASE, URINE AUTO NEGATIVE (NEGATIVE); MUCUS, URINE SMALL (NEGATIVE); NITRITE, URINE AUTO NEGATIVE (NEGATIVE); PROTEIN, URINE AUTO NEGATIVE (NEGATIVE); RBC, URINE AUTO 1 /HPF (0-3); SPECIFIC GRAVITY URINE AUTO 1.016 (1.002-1.035); SQUAMOUS EPITHELIAL CELL UR AU 0 /HPF (0-6); URIC ACID CRYSTALS SMALL; UROBILINOGEN, URINE AUTO 0.2 mg/dL (0.0-2.0); WBC, URINE AUTO 0 /HPF (0-3)
[2024-05-09 13:52] LABS: HEMOGLOBIN A1c 6.3 % (4.0-6.0)
== END ==
LOC: M SFHCADAM 07:48
PROVIDERS: ATTEND Physician Assistant
DX: Z01.818 Encounter for other preprocedural examination (principal); E11.9 Type 2 diabetes mellitus without complications

== ENCOUNTER 2024-05-17 12:20 | Day surgery (SDC) | payer MEDICARE, BC ==
[~2024-05-17] VITALS: Ht 167.6 cm; Wt 77.0 kg
[2024-05-17] MEDS ORDERED: NS (Normal Saline) 0.9% 1,000 ML IV SCH (12:40)
[2024-05-17] MEDS ORDERED: propofoL 200 MG/20 ML VIAL As Ordered ONE (14:07)
[2024-05-17] MEDS ORDERED: LIDOCAINE 2% 100MG/5ML SDV (FOR ANES.) As Ordered ONE (14:07)
[2024-05-17] MEDS ORDERED: ONDANSETRON 4MG 2ML VIAL As Ordered ONE (14:07)
[2024-05-17] MEDS ORDERED: ACETAMINOPHEN 1000MG/100ML IV BAG As Ordered ONE (14:07)
[2024-05-17] MEDS ORDERED: MIDAZOLAM INJ 2MG/2ML VIAL As Ordered ONE (14:07)
[2024-05-17] MEDS ORDERED: fentaNYL 100 MCG/2 ML INJECTION As Ordered ONE (14:07)
[2024-05-17] MEDS: ceFAZolin SOD 2 GM in IV 1 EA IV ONE (15:05)
[2024-05-17] MEDS ORDERED: dexmedeTOMIDine (4MCG/ML)200MCG/50ML BTL (PRECEDEX) As Ordered ONE (16:05)
[2024-05-17] MEDS ORDERED: ePHEDrine SULFATE 25 MG/5 ML(5MG/ML) SYRINGE As Ordered ONE (16:05)
[2024-05-17] MEDS: ISOVUE-300 61% 100ML VIAL As Ordered ONE (16:40)
[2024-05-17] MEDS ORDERED: ONDANSETRON 4MG 2ML VIAL IV PRN (16:45)
[2024-05-17] MEDS ORDERED: oxyCODONE 5MG TAB PO PRN (16:45)
[2024-05-17] MEDS ORDERED: fentaNYL 100 MCG/2 ML INJECTION IV PRN (16:45)
[2024-05-17] MEDS ORDERED: CIPR-249 PO (17:08)
[2024-05-17 17:55] VITALS: BP 133/78; TEMP 97; O2SAT 97
[2024-06-17] MEDS ORDERED: METO1TAB7 PO (11:31)
== END 2024-05-17 18:32 | disposition home or self-care (01) ==
LOC: M SDC 12:20
PROVIDERS: ATTEND Urology
DX: N21.0 Calculus in bladder (principal); N20.0 Calculus of kidney; I10 Essential (primary) hypertension; E11.9 Type 2 diabetes mellitus without complications; E78.5 Hyperlipidemia, unspecified; N40.0 Benign prostatic hyperplasia without lower urinary tract symptoms; K57.92 Diverticulitis of intestine, part unspecified, without perforation or abscess without bleeding; Z79.84 Long term (current) use of oral hypoglycemic drugs; Z79.899 Other long term (current) drug therapy; Z79.82 Long term (current) use of aspirin
CPT/HCPCS: 52317; 52356; 74420; 82365; C1769; C2617; J0131; J0690; J1100; J2250; J2405; J3010; Q9967

== ENCOUNTER → 2024-06-12 | Outpatient (REF) | payer MEDICARE ==
[2024-06-12 14:10] LABS: HEMATOCRIT 46.9 % (42.0-52.0); HEMOGLOBIN 15.5 g/dl (13.5-17.5); MEAN CORPUSCULAR HEMOGLOBIN 29.9 pg (27.0-33.0); MEAN CORPUSCULAR VOLUME 90.5 fl (80.0-96.0); PLATELET COUNT, AUTOMATED 398 10^3/uL (150-450); RED BLOOD COUNT 5.18 10^6/uL (4.30-6.10); WHITE BLOOD COUNT 9.1 10^3/uL (4.0-10.0)
[2024-06-12 16:21] LABS: BLOOD UREA NITROGEN 25 MG/DL (9-23); CALCIUM LEVEL 9.9 MG/DL (8.3-10.6); CARBON DIOXIDE LEVEL 29 MMOL/L (20-31); CHLORIDE LEVEL 105 MMOL/L (98-107); GLOMERULAR FILTRATION RATE > 60.0 (>49); GLUCOSE, FASTING 119 MG/DL (74-106); POTASSIUM SERUM 4.6 MMOL/L (3.5-5.1); SODIUM LEVEL 143 MMOL/L (136-145)
== END ==
LOC: M LABDRWAD 12:49 → M SMT 12:49
PROVIDERS: ATTEND Urology
DX: Z01.818 Encounter for other preprocedural examination (principal); N21.0 Calculus in bladder; N40.1 Benign prostatic hyperplasia with lower urinary tract symptoms

== ENCOUNTER 2024-06-19 11:00 | Day surgery (SDC) | payer MEDICARE ==
[~2024-06-19] VITALS: Ht 167.6 cm; Wt 72.6 kg
[~2024-06-19 11:00] MED LIST changes: +METO1TAB7 PO
[2024-06-19] MEDS ORDERED: LR 1,000 ML IV SCH ×2 (11:25→15:20)
[2024-06-19] MEDS ORDERED: ACETAMINOPHEN 1000MG/100ML IV BAG As Ordered ONE (11:34)
[2024-06-19] MEDS ORDERED: MIDAZOLAM INJ 2MG/2ML VIAL As Ordered ONE (11:34)
[2024-06-19] MEDS ORDERED: fentaNYL 100 MCG/2 ML INJECTION As Ordered ONE (11:34)
[2024-06-19] MEDS ORDERED: ONDANSETRON 4MG 2ML VIAL As Ordered ONE (11:35)
[2024-06-19] MEDS ORDERED: LIDOCAINE 2% 100MG/5ML SDV (FOR ANES.) As Ordered ONE (11:35)
[2024-06-19] MEDS ORDERED: propofoL 200 MG/20 ML VIAL As Ordered ONE (11:35)
[2024-06-19] MEDS: ceFAZolin SOD 2 GM in IV 1 EA IV ONE (12:52)
[2024-06-19] MEDS ORDERED: ePHEDrine SULFATE 25 MG/5 ML(5MG/ML) SYRINGE As Ordered ONE (13:54)
[2024-06-19] MEDS ORDERED: FUROSEMIDE 100MG/10ML VIAL As Ordered ONE (15:03)
[2024-06-19] MEDS ORDERED: ONDANSETRON 4MG 2ML VIAL IV PRN (15:20)
[2024-06-19] MEDS ORDERED: fentaNYL 100 MCG/2 ML INJECTION IV PRN (15:20)
[2024-06-19] MEDS ORDERED: CIPR-249 PO (15:49)
[2024-06-19] MEDS ORDERED: ACETAMINOPHEN 325 MG TAB PO PRN (15:55)
[2024-06-19 16:20] VITALS: BP 145/78; TEMP 97.3; O2SAT 98
== END 2024-06-19 16:43 | disposition home or self-care (01) ==
LOC: M SDC 11:00
PROVIDERS: ATTEND Urology
DX: N40.1 Benign prostatic hyperplasia with lower urinary tract symptoms (principal); I10 Essential (primary) hypertension; E78.5 Hyperlipidemia, unspecified; E11.9 Type 2 diabetes mellitus without complications; K57.92 Diverticulitis of intestine, part unspecified, without perforation or abscess without bleeding; K76.0 Fatty (change of) liver, not elsewhere classified; Z79.899 Other long term (current) drug therapy; Z79.82 Long term (current) use of aspirin; Z79.84 Long term (current) use of oral hypoglycemic drugs
CPT/HCPCS: 52601; J0131; J0690; J1100; J1940; J2250; J2405; J3010

== ENCOUNTER → 2024-07-02 | Outpatient (REF) | payer MEDICARE ==
[2024-07-02 13:53] LABS: APPEARANCE, URINE CLOUDY (CLEAR); BACTERIA, URINE AUTO NEGATIVE (NEGATIVE); BILIRUBIN, URINE AUTO NEGATIVE (NEGATIVE); BLOOD, URINE BLOOD 3+ (NEGATIVE); COLOR, URINE AMBER (YELLOW); GLUCOSE, URINE (UA) AUTO 3+ mg/dL (NEGATIVE); KETONE, URINE AUTO NEGATIVE (NEGATIVE); LEUKOCYTE ESTERASE, URINE AUTO 2+ (NEGATIVE); NITRITE, URINE AUTO NEGATIVE (NEGATIVE); PROTEIN, URINE AUTO 2+ mg/dL (NEGATIVE); RBC, URINE AUTO TNTC /HPF (0-3); SQUAMOUS EPITHELIAL CELL UR AU 0 /HPF (0-6); UROBILINOGEN, URINE AUTO 0.2 mg/dL (0.0-2.0); WBC, URINE AUTO 143 /HPF (0-3)
== END ==
LOC: M SMT 12:58
PROVIDERS: ATTEND Urology
DX: N39.0 Urinary tract infection, site not specified (principal)

== ENCOUNTER → 2024-08-28 | Outpatient (CLI) | payer MEDICARE | LOC: M SLEEP 20:00 | PROVIDERS: ATTEND Nurse Practitioner Adult Health | DX: G47.33 Obstructive sleep apnea (adult) (pediatric) (principal); R06.83 Snoring ==

== ENCOUNTER → 2024-08-29 | Outpatient (REF) | payer MEDICARE | LOC: M SFHCADAM 08:31 | PROVIDERS: ATTEND Physician Assistant | DX: Z53.9 Procedure and treatment not carried out, unspecified reason (principal) ==

== ENCOUNTER → 2024-08-30 | Outpatient (REF) | payer MEDICARE ==
[2024-08-30 14:11] LABS: FREE T4 1.09 NG/DL (0.89-1.76); THYROID STIMULATING HORMONE 1.932 uIU/ML (0.55-4.78)
[2024-08-30 14:12] LABS: ALBUMIN 3.9 G/DL (3.2-5.2); BILIRUBIN,TOTAL 0.8 MG/DL (0.3-1.2); CALCIUM LEVEL 9.7 MG/DL (8.3-10.6); CHOLESTEROL RISK RATIO 2.82 (<5); CREATININE FOR GFR 1.02 MG/DL (0.70-1.30); GLOMERULAR FILTRATION RATE 80.1 (>49); HDL CHOLESTEROL 39.7 MG/DL (>40); LDL CHOLESTEROL 49.9 MG/DL (<100); NON-HDL-C 72.3 MG/DL; TOTAL PROTEIN 6.8 G/DL (5.7-8.2)
[2024-08-30 14:18] LABS: HEMOGLOBIN A1c 5.9 % (4.0-6.0)
== END ==
LOC: M SFHCADAM 07:28
PROVIDERS: ATTEND Physician Assistant
DX: E78.00 Pure hypercholesterolemia, unspecified (principal); E11.9 Type 2 diabetes mellitus without complications; K76.0 Fatty (change of) liver, not elsewhere classified; I10 Essential (primary) hypertension

== ENCOUNTER → 2024-09-05 | Outpatient (CLI) | payer MEDICARE ==
[2024-09-05 14:59] LABS: BASO # 0.1 10^3/uL (0.0-0.2); BASO % 0.8 % (0.0-1.0); EOS # 0.3 10^3/uL (0.0-0.5); EOS % 4.5 % (0.0-3.0); HEMATOCRIT 51.5 % (42.0-52.0); HEMOGLOBIN 16.2 g/dl (13.5-17.5); LYMPH # 1.7 10^3/uL (1.5-5.0); MEAN CORPUSCULAR HEMOGLOBIN 30.3 pg (27.0-33.0); MEAN CORPUSCULAR HGB CONC 31.5 g/dl (32.0-36.5); MEAN CORPUSCULAR VOLUME 96.4 fl (80.0-96.0); MONO # 0.7 10^3/uL (0.0-0.8); MONO % 10.2 % (2.0-8.0); NEUTROPHILS # 3.7 10^3/uL (1.5-8.5); NEUTROPHILS % 57.3 % (36.0-66.0); PLATELET COUNT, AUTOMATED 191 10^3/uL (150-450); RED BLOOD COUNT 5.34 10^6/uL (4.30-6.10); WHITE BLOOD COUNT 6.4 10^3/uL (4.0-10.0)
[2024-09-05 15:39] LABS: CALCIUM LEVEL 9.9 MG/DL (8.3-10.6); CREATININE FOR GFR 1.09 MG/DL (0.70-1.30); GLOMERULAR FILTRATION RATE 73.9 (>49)
== END ==
LOC: M PLALAB 09:28
PROVIDERS: ATTEND Internal Medicine Cardiovascular Disease
DX: I49.3 Ventricular premature depolarization (principal); I25.10 Atherosclerotic heart disease of native coronary artery without angina pectoris

== ENCOUNTER → 2024-09-18 | Outpatient (CLI) | payer MEDICARE ==
[~2024-09-18] MED LIST changes: -FLOM0.4C39 PO; +TAMS-18 PO
== END ==
LOC: M PLAIMG 14:00
PROVIDERS: ATTEND Urology
DX: N20.0 Calculus of kidney (principal)

== ENCOUNTER → 2024-09-19 | Outpatient (CLI) | payer MEDICARE | LOC: M PLALAB 09:55 | PROVIDERS: ATTEND Physician Assistant | DX: R97.20 Elevated prostate specific antigen [PSA] (principal) ==

== ENCOUNTER → 2025-05-19 | Outpatient (REF) | payer MEDICARE ==
[~2025-05-19] MED LIST changes: -ROSU10TA61 PO; +ROSU10TA90 PO
[2025-05-19 14:09] LABS: ALT/SGPT 47.0 U/L (7.0-40); AST/SGOT 32.0 U/L (<34); CALCIUM LEVEL 9.8 MG/DL (8.3-10.6); CARBON DIOXIDE LEVEL 30.0 MMOL/L (20-31); CHLORIDE LEVEL 102.0 MMOL/L (98-107); CREATININE FOR GFR 1.19 MG/DL (0.70-1.30); GLOMERULAR FILTRATION RATE 66.1 (>49); POTASSIUM SERUM 4.9 MMOL/L (3.5-5.1); SODIUM LEVEL 141.0 MMOL/L (136-145)
[2025-05-19 14:18] LABS: ESTIMATED AVERAGE GLUCOSE 143.0 MG/DL (60-110)
== END ==
LOC: M SFHCADAM 09:18
PROVIDERS: ATTEND Family Medicine
DX: E11.9 Type 2 diabetes mellitus without complications (principal); I51.9 Heart disease, unspecified; K76.0 Fatty (change of) liver, not elsewhere classified